=== PATIENT | female | born 1985 | race African-American/Black ===

== ENCOUNTER 2017-03-29 17:14 | Observation (INO) ==
[2017-03-29 18:41] LABS: Apearance,Urine Slightly Hazy (Clear); Bacteria,Urine Occasional /HPF (Few); Bilirubin,Urine Negative (Negative); Blood, Urine Negative (Negative); Glucose,Urine (UA) Negative (Negative); Hyaline Casts,Urine 8 /LPF (0-3); Ketones,Urine 5 mg/dL (Negative); Mucus,Urine Many /LPF (Occasional); Nitrite,Urine Negative (Negative); Protein,Urine Negative; RBC,Urine 5 /HPF (0-4); Squamous Epithelial Cell,Urine Occasional /HPF (0-10); Urine Color Yellow (Yellow); Urine Specific Gravity 1.027 (1.001-1.035); WBC,Urine 14 /HPF (0-6)
[2017-03-29 19:22] LABS: Basophils % 0.1 % (0.0-0.8); Eosinophils # 0.1 10*3/uL (0.0-0.87); Hematocrit 34.5 VOL% (35.7-47.0); Hemoglobin 11.5 GM/DL (12.0-16.0); Immature Granulocytes % 0.5 %; Immature Granulocytes Absolute 0.04 #; Lymphocytes # 2.2 10*3/uL (1.4-4.0); Lymphocytes % 24.9 % (21.3-54.2); Mean Corpuscular HGB Conc 33.3 GM/DL (32-36); Mean Corpuscular Hemoglobin 30 PG (27-34); Mean Corpuscular Volume 90.6 FL (87-102); Mean Platelet Volume 9.9 FL (9.6-12.0); Monocytes # 0.5 10*3/uL (0.11-0.8); Monocytes % 6.1 % (1.7-12.7); Neutrophils # 5.9 10*3/uL (1.4-7.4); Neutrophils % 67.4 % (38.7-73.9); Platelet Count 239 T/CUMM (130-400); Red Blood Count 3.81 MC/CUMM (3.8-5.5); Red Cell Distribution Width 13.4 % (9.3-17.3); White Blood Count 8.7 T/CUMM (4-12)
[2017-03-29 19:32] LABS: INR 0.9; PT Patient Result 9.8 SECS; Partial Thromboplastin Time 28.6 SECS (0-40)
[2017-03-29 19:41] LABS: Albumin 2.6 G/DL (3.4-5.0); Bilirubin,Total 0.5 MG/DL (0.2-1.0); Calcium 8.7 MG/DL (8.5-10.1); Osmolality,Calculated 270.8 MOS/KG (273-304); Potassium 3.8 MMOL/L (3.5-5.1); Total Protein 6.6 G/DL (6.4-8.3); Uric Acid 4.3 MG/DL (2.6-6.0)
--- NOTE | 2017-03-29 19:59 | Ultrasound Report ---
Exam: US OB >= 14 weeks fetus Date: 03/29/2017 6:48 PM Indication: Assess growth, elevated maternal blood pressure. Reported gestational age 24 weeks 2 days and due date of 07/17/2017 Comparison: 01/27/2017 Findings: Single fetus in transverse presentation with cardiac activity. Heart rate is regular 1 65 bpm. Placenta is posterior/right lateral with no previa. BPD: 5.51 cm; 22/6 Head circumference: 20.55 cm; 22/5 Abdominal circumference: 17.4 cm; 22/5 Femur length: 3.93 cm; 22/5 Amniotic fluid index: 11.06 cm, which is within normal limits Estimated weight: 525 g (1 lb. 3 oz.) this corresponds to the less than 3rd percentile for growth. Cervical length: 5.99 cm structures: stomach, kidneys, bladder, three-vessel cord and cord insertion appear within normal limits. Four-chamber heart is not well visualized. The spine is not well visualized. Limited visualization of the nose/lips appears grossly normal. Maternal ovaries not visualized. Ultrasound images were captured and stored. Impression: 1. Single fetus in transverse presentation with cardiac activity. Estimated gestational age 22 weeks 5 days and due date of 07/28/2017. This is an 11 day discrepancy from the reported due date of 07/17/2017. Additionally, the estimated weight of 1 lb. 3 oz. is less than 3rd percentile for growth. Continued close clinical and imaging follow-up is recommended. 2. Normal amniotic fluid volume. 3. Limited structural survey as detailed above. Follow-up for nonvisualized/poorly visualized structures is recommended when clinically feasible. PROCEDURE INTERPRETED AT [facility] DEPARTMENT OF RADIOLOGY Final Report Signed by: Jonathan Hewitt
[2017-03-29] MEDS: LACTATED RINGERS 1,000 ML IV SCH (21:21)
[2017-03-29] MEDS: LABETALOL 100 MG TABLET PO SCH (21:21)
[2017-03-30] MEDS: LACTATED RINGERS 1,000 ML IV SCH ×3 (04:30→22:20)
--- NOTE | 2017-03-30 09:21 | OB/GYN History & Physical ---
History of Present Illness Chief complaint: presented 03/29/17 for c/o bilateral lower abdominal discomforts History of present illness: Ms. Delatorre is a 31 year old female that presented with complaints of bilateral lower abdominal discomfort with increasing pain shooting towards the vagina per patient. Patient is a 31-year-old 3 para 2001 that presented complaints of bilateral lower abdominal pain and discomfort and suprapubic discomfort. She is 24.3 weeks gestation today based on last menstrual period of 07/17/2017. She receives care at [facility] [place] with Dr. Wolfe. She had a total of 3 visits and 1 ultrasound. During the course of her she has initiated late care, had a positive urine drug screen for cannabinoids on 01/25/2017, and vitamin D deficiency of 9.2 and started vitamin D on 50,000 units weekly. Her records are current, reviewed, and up to date. 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 On 01/07/2009 she had a male infant weighing 8 lbs. 9 oz. at 40 weeks gestation by primary section secondary to elevated blood pressures. On 07/12/2005 at 38 weeks gestation she had a repeat section to deliver a female . Patient stated during the course of the last the baby had an arrhythmia in which they took the baby early and she also had elevated blood pressures. 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, graduated high school Family Hx: Hypertension noted with mother, father, maternal grandmother; diabetes noted with maternal grandmother Medications: vitamins daily Allergies: NKDA Tobacco, Alcohol, and drugs: Denies use of any drugs Labs: Blood type and RH B+, antibody screen negative, Rubella immune, HIV negative, HBsAG negative, GC negative, Chlamydia negative, Diabetic Screen too early presently, GBS to early, not obtained, Other urine drug screen positive for cannabinoids on 01/25/2017, obesity Assessment: IUP at 24.3 weeks, previous section 2, labile blood pressures, history elevated blood pressures in with both pregnancies, H/O PIH, vitamin D deficiency, obesity, anemia, ligament discomfort, urinary tract infection Plan: Patient had PIH labs obtained yesterday and was they are within normal limits. She was started on labetalol during the night per Dr. Davis. A 24 hour urine is in progress presently. I consulted Dr. Wolfe and he indicated that he will continue to monitor the patient for elevated blood pressures today and she will possibly be discharged home this morning. I informed the patient to start taking a daily aspirin of 81 mg every day. She is also to include vitamin D 5000 IUs daily [id number]. Daily kick counts, labor, and bleeding precautions were discussed. Patient denies any drug use she was counseled to use that utilizing any drugs if it was pertinent with her. Preeclampsia signs and symptoms were discussed. Patient verbalized understanding to all instructions. She will possibly be discharged home tomorrow if stable. Home Medications Medication Instructions Recorded Confirmed Type Vits #90/Iron Fum/FA 1 tablet PO DAILY 03/29/17 03/29/17 History [ Formula Tablet] Allergies Allergy/AdvReac Type Severity Reaction Status Date / Time No Known Allergies Allergy Verified 03/29/17 17:45 12 point system: reviewed and no additional remarkable complaints except as stated Medical,Surgical,& Family Hx - Medical History Other: History of: Miscellaneous Medical Problems (obesity) - Surgical History HEENT Surgeries: Surgical HX of: Tonsilectomy & Adenoidectomy (1999) Reproductive Surgeries: Surgical HX of;: Section (2008 & 2014) - Family History Family History: Reports;: Family Diabetes (Maternal grandmother), Family Hypertension (Mother and Father, MGM) - Social History Smoking Status: Never smoker Frequency of Alcohol Use: None Type of Drug Use: None Marital Status: Single Lives With:: Children Functional capacity: independent ambulation 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 Vitals: Vital Signs Temp Pulse Resp BP Pulse Ox 03/30/17 07:36 98.1 F 81 20 144/84 99 03/30/17 05:59 18 03/30/17 03:46 97.7 F 86 18 145/88 99 03/30/17 02:00 20 03/30/17 00:00 99.2 F 92 H 18 147/73 97 03/29/17 20:00 98.4 F 78 18 127/71 General appearance: no acute distress, over weight - Antepartum / Post Antepartum Exam Cervix -Dilatation: deferred Heart Rate: 171 bpm this morning [place]: uterine tonus soft Abdomen obstetrics: Present: bowel sounds normal Uterus exam: Present: enlarged (fundal height @ 25 cm) - Head Head exam: Present: normal inspection - Eye Eye exam: Present: EOMI Pupils: Present: normal accommodation - ENT ENT exam: Present: normal exam, normal external ear exam - Neck Neck exam: Present: normal inspection - Respiratory Respiratory exam: Present: clear to auscultation bilaterally - Cardiovascular Cardiovascular exam: Present: regular rate and rhythm - GI/Abdominal GI/Abdominal exam: Present: normal bowel sounds - Extremities Exam Extremities exam: Present: normal inspection, normal capillary refill, full ROM - Back Exam Back exam: Present: normal inspection - Neurological Exam Neurological exam: Present: alert, oriented X3, normal gait - Psychiatric Psychiatric exam: Present: normal affect, normal mood - Skin Skin exam: Present: normal color, warm, dry Assessment and Plan (1) Labile blood pressure Status: Acute Assessment and plan: PIH labs and 24 hour urine obtained vitamin D 5000 IU and Daily ASA 81 mg labetalol 100 mg po bid Current Visit: Yes (2) PIH ( induced hypertension) Status: Acute Current Visit: Yes (3) Obesity Status: Acute Current Visit: Yes (4) H/O section Status: Acute Current Visit: Yes (5) H/O cannabis abuse Status: Acute Current Visit: Yes (6) Vitamin D deficiency Status: Acute Assessment and plan: vitamin D 5000 IU daily Current Visit: Yes (7) Discomfort during Status: Acute Current Visit: Yes Results - Labs CBC & BMP: 03/29/17 19:08 03/29/17 19:08 Labs: Laboratory Tests 03/29/17 03/29/17 03/29/17 18:30 19:08 19:08 WBC 8.7 RBC 3.81 Hgb 11.5 L Hct 34.5 L MCV 90.6 MCH 30 MCHC 33.3 RDW 13.4 Plt Count 239 MPV 9.9 Neut % (Auto) 67.4 Lymph % (Auto) 24.9 Pope % (Auto) 6.1 Eos % (Auto) 1.0 Baso % (Auto) 0.1 Neut # (Auto) 5.9 Lymph # (Auto) 2.2 Pope # (Auto) 0.5 Eos # (Auto) 0.1 Baso # (Auto) 0.0 Immature Gran % 0.5 Nucleated RBC % 0.0 Immature Gran # 0.04 Nucleated RBCs # 0.00 INR PT Patient/Control Mix Fibrinogen Circ Anticoag PTT Sodium 137 Potassium 3.8 Chloride 104 Carbon Dioxide 26 Anion Gap 10.8 BUN 7 Creatinine 0.60 GFR Calculation 187 BUN/Creatinine Ratio 11.00 Glucose 90 Calculated Osmolality 270.8 L Uric Acid 4.3 Calcium 8.7 Total Bilirubin 0.50 AST 9 ALT 15 Alkaline Phosphatase 69 Total Protein 6.6 Albumin 2.6 L Globulin 4.0 H Albumin/Globulin Ratio 0.6 L Urine Color Yellow Urine Appearance Slightly hazy Urine pH 5.0 Ur Specific [place] 1.027 Urine Protein Negative Urine Glucose (UA) Negative Urine Ketones 5 Urine Blood Negative Urine Nitrate Negative Urine Bilirubin Negative Urine Urobilinogen 2.0 H Urine Leukocytes Small H Urine RBC 5 Urine WBC 14 Ur Squamous Epith Cells Occasional Urine Bacteria Occasional Hyaline Casts 8 Urine Mucus Many Ur Culture Indicated? Results to follow 03/29/17 19:09 WBC RBC Hgb Hct MCV MCH MCHC RDW Plt Count MPV Neut % (Auto) Lymph % (Auto) Pope % (Auto) Eos % (Auto) Baso % (Auto) Neut # (Auto) Lymph # (Auto) Pope # (Auto) Eos # (Auto) Baso # (Auto) Immature Gran % Nucleated RBC % Immature Gran # Nucleated RBCs # INR 0.9 PT Patient/Control Mix 9.8 Fibrinogen 374 Circ Anticoag PTT 28.6 Sodium Potassium Chloride Carbon Dioxide Anion Gap BUN Creatinine GFR Calculation BUN/Creatinine Ratio Glucose Calculated Osmolality Uric Acid Calcium Total Bilirubin AST ALT Alkaline Phosphatase Total Protein Albumin Globulin Albumin/Globulin Ratio Urine Color Urine Appearance Urine pH Ur Specific [place] Urine Protein Urine Glucose (UA) Urine Ketones Urine Blood Urine Nitrate Urine Bilirubin Urine Urobilinogen Urine Leukocytes Urine RBC Urine WBC Ur Squamous Epith Cells Urine Bacteria Hyaline Casts Urine Mucus Ur Culture Indicated?
[2017-03-30] MEDS: LABETALOL 100 MG TABLET PO SCH ×2 (09:30→20:52)
[2017-03-30 23:02] LABS: Collection Time,Urine 24 HOURS; Total Protein 24 Hr Ur Result 320 MG/24HR (0-149.1); Total Volume,Urine 3200 ML (400-2000)
[2017-03-30 23:29] LABS: Barbiturates Screen,Urine Negative (Negative); Benzodiazepines Screen,Urine Negative (Negative); Cannabinoid Screen,Urine Positive (Negative); Opiate Screen,Urine Negative (Negative); Phencyclidine Screen,Urine Negative (Negative)
[2017-03-31 06:43] LABS: Basophils % 0.2 % (0.0-0.8); Eosinophils # 0.2 10*3/uL (0.0-0.87); Eosinophils % 1.7 % (0.00-10.9); Hematocrit 31.5 VOL% (35.7-47.0); Hemoglobin 10.8 GM/DL (12.0-16.0); Immature Granulocytes % 0.3 %; Immature Granulocytes Absolute 0.03 #; Lymphocytes # 2.1 10*3/uL (1.4-4.0); Lymphocytes % 23.8 % (21.3-54.2); Mean Corpuscular HGB Conc 34.3 GM/DL (32-36); Mean Corpuscular Hemoglobin 31 PG (27-34); Mean Platelet Volume 10.2 FL (9.6-12.0); Monocytes # 0.6 10*3/uL (0.11-0.8); Monocytes % 6.2 % (1.7-12.7); Neutrophils # 6.1 10*3/uL (1.4-7.4); Neutrophils % 67.8 % (38.7-73.9); Platelet Count 201 T/CUMM (130-400); Red Blood Count 3.54 MC/CUMM (3.8-5.5); Red Cell Distribution Width 13.2 % (9.3-17.3)
[2017-03-31 07:08] LABS: Uric Acid 3.8 MG/DL (2.6-6.0)
[2017-03-31] MEDS: LABETALOL 100 MG TABLET PO SCH ×2 (08:45→20:58)
--- NOTE | 2017-03-31 09:16 | OB/GYN Progress Note ---
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 Denies any cramping, pain, discomforts, vaginal bleeding, or H/A. A: IUP 25.4 wks, proteinuria, H/O PIH, P: Consulted Dr. Wolfe for 24 hour urine protein at 320 mg- recommended consult Nephrology for renal issues Exam WOOL DYER - Constitutional Vitals: Vital Signs Temp Pulse Resp BP Pulse Ox 03/31/17 07:23 97.2 F L 79 20 146/76 100 03/31/17 04:15 97.5 F L 83 18 137/77 96 03/31/17 02:10 20 03/31/17 00:20 97.4 F L 87 20 133/81 96 03/30/17 19:40 98.1 F 84 20 138/76 97 03/30/17 15:59 97.4 F L 82 20 154/86 97 03/30/17 11:19 98.1 F 81 20 140/92 100 General appearance: no acute distress - Antepartum / Post Antepartum Exam Heart Rate: 153 bpm Breast: bilateral: normal Abdomen obstetrics: Present: bowel sounds normal Uterus exam: Present: enlarged (gravid, soft, nontender) Adnexa: bilateral: normal Anus/Rectum: Present: normal perianal skin - Head Head exam: Present: normal inspection - Eye Pupils: Present: normal accommodation - ENT ENT exam: Present: normal exam, normal external ear exam - Neck Neck exam: Present: normal inspection - Respiratory Respiratory exam: Present: clear to auscultation bilaterally - Cardiovascular Cardiovascular exam: Present: regular rate and rhythm - GI/Abdominal GI/Abdominal exam: Present: normal bowel sounds - Extremities Exam Extremities exam: Present: normal inspection, normal capillary refill, full ROM Results - Labs CBC & BMP: 03/31/17 05:58 03/31/17 05:58 Labs: Laboratory Tests 03/29/17 03/29/17 03/29/17 18:30 19:08 19:08 WBC 8.7 RBC 3.81 Hgb 11.5 L Hct 34.5 L MCV 90.6 MCH 30 MCHC 33.3 RDW 13.4 Plt Count 239 MPV 9.9 Neut % (Auto) 67.4 Lymph % (Auto) 24.9 Dane % (Auto) 6.1 Eos % (Auto) 1.0 Baso % (Auto) 0.1 Neut # (Auto) 5.9 Lymph # (Auto) 2.2 Dane # (Auto) 0.5 Eos # (Auto) 0.1 Baso # (Auto) 0.0 Immature Gran % 0.5 Nucleated RBC % 0.0 Immature Gran # 0.04 Nucleated RBCs # 0.00 INR PT Patient/Control Mix Fibrinogen Circ Anticoag PTT Sodium 137 Potassium 3.8 Chloride 104 Carbon Dioxide 26 Anion Gap 10.8 BUN 7 Creatinine 0.60 GFR Calculation 187 BUN/Creatinine Ratio 11.00 Glucose 90 Calculated Osmolality 270.8 L Uric Acid 4.3 Calcium 8.7 Total Bilirubin 0.50 AST 9 ALT 15 Alkaline Phosphatase 69 Total Protein 6.6 Albumin 2.6 L Globulin 4.0 H Albumin/Globulin Ratio 0.6 L Urine Color Yellow Urine Appearance Slightly hazy Urine pH 5.0 Ur Specific [place] 1.027 Urine Protein Negative Urine Glucose (UA) Negative Urine Ketones 5 Urine Blood Negative Urine Nitrate Negative Urine Bilirubin Negative Urine Urobilinogen 2.0 H Urine Leukocytes Small H Urine RBC 5 Urine WBC 14 Ur Squamous Epith Cells Occasional Urine Bacteria Occasional Hyaline Casts 8 Urine Mucus Many Ur Culture Indicated? Results to follow Urine Collection Time Urine Total Volume Ur Total Protein 24 Hr Urine Opiates Screen Ur Barbiturates Screen Ur Phencyclidine Scrn U Amphetamine/Methamph U Benzodiazepines Scrn U Cocaine Metab Screen U Cannabinoids Screen 03/29/17 03/30/17 03/30/17 19:09 22:20 22:30 WBC RBC Hgb Hct MCV MCH MCHC RDW Plt Count MPV Neut % (Auto) Lymph % (Auto) [place] % (Auto) Eos % (Auto) Baso % (Auto) Neut # (Auto) Lymph # (Auto) [place] # (Auto) Eos # (Auto) Baso # (Auto) Immature Gran % Nucleated RBC % Immature Gran # Nucleated RBCs # INR 0.9 PT Patient/Control Mix 9.8 Fibrinogen 374 Circ Anticoag PTT 28.6 Sodium Potassium Chloride Carbon Dioxide Anion Gap BUN Creatinine GFR Calculation BUN/Creatinine Ratio Glucose Calculated Osmolality Uric Acid Calcium Total Bilirubin AST ALT Alkaline Phosphatase Total Protein Albumin Globulin Albumin/Globulin Ratio Urine Color Urine Appearance Urine pH Ur Specific [place] Urine Protein Urine Glucose (UA) Urine Ketones Urine Blood Urine Nitrate Urine Bilirubin Urine Urobilinogen Urine Leukocytes Urine RBC Urine WBC Ur Squamous Epith Cells Urine Bacteria Hyaline Casts Urine Mucus Ur Culture Indicated? Urine Collection Time 24 Urine Total Volume 3200 H Ur Total Protein 24 Hr 320 H Urine Opiates Screen Negative Ur Barbiturates Screen Negative Ur Phencyclidine Scrn Negative U Amphetamine/Methamph Negative U Benzodiazepines Scrn Negative U Cocaine Metab Screen Negative U Cannabinoids Screen Positive H 03/31/17 03/31/17 03/31/17 05:58 05:58 05:58 WBC 9.0 RBC 3.54 L Hgb 10.8 L Hct 31.5 L MCV 89.0 MCH 31 MCHC 34.3 RDW 13.2 Plt Count 201 MPV 10.2 Neut % (Auto) 67.8 Lymph % (Auto) 23.8 [place]ane % (Auto) 6.2 Eos % (Auto) 1.7 Baso % (Auto) 0.2 Neut # (Auto) 6.1 Lymph # (Auto) 2.1 Dane # (Auto) 0.6 Eos # (Auto) 0.2 Baso # (Auto) 0.0 Immature Gran % 0.3 Nucleated RBC % 0.0 Immature Gran # 0.03 Nucleated RBCs # 0.00 INR PT Patient/Control Mix Fibrinogen 411 H Circ Anticoag PTT Sodium Potassium Chloride Carbon Dioxide Anion Gap BUN Creatinine 0.50 L GFR Calculation 199 BUN/Creatinine Ratio Glucose Calculated Osmolality Uric Acid 3.8 Calcium Total Bilirubin AST ALT Alkaline Phosphatase Total Protein Albumin Globulin Albumin/Globulin Ratio Urine Color Urine Appearance Urine pH Ur Specific [place] Urine Protein Urine Glucose (UA) Urine Ketones Urine Blood Urine Nitrate Urine Bilirubin Urine Urobilinogen Urine Leukocytes Urine RBC Urine WBC Ur Squamous Epith Cells Urine Bacteria Hyaline Casts Urine Mucus Ur Culture Indicated? Urine Collection Time Urine Total Volume Ur Total Protein 24 Hr Urine Opiates Screen Ur Barbiturates Screen Ur Phencyclidine Scrn U Amphetamine/Methamph U Benzodiazepines Scrn U Cocaine Metab Screen U Cannabinoids Screen
[2017-03-31] MEDS: LACTATED RINGERS 1,000 ML IV SCH ×2 (14:36→14:37)
--- NOTE | 2017-03-31 19:00 | Nephrology Consult Note ---
History of Present Illness Chief complaint: Hypertension, proteinuria History of present illness: Ms. Delatorre is a 31 year old female with a history of hypertension is now 24 weeks 4 days intrauterine . Patient had evidence of proteinuria on UA that quantitated to less than 500 mg. Nephrology has been consulted for proteinuria and hypertension. Throughout the day patient's blood pressure has been 6 ranging from systolics of 160s to to 130s and diastolics in the 70s-80s. No shortness of breath or chest pain. There is no history of kidney disease in the patient or patient's family. No history of NSAID use. She has been treated for urinary tract infection. Continue with antihypertensive medications labetalol 100 mg 3 times daily. Avoid nephrotoxic agents. Will repeat a spot urine protein creatinine. Creatinine appears to be stable. Home Medications Medication Instructions Recorded Confirmed Type Vits #90/Iron Fum/FA 1 tablet PO DAILY 03/29/17 03/29/17 History [ Formula Tablet] Allergies Allergy/AdvReac Type Severity Reaction Status Date / Time No Known Allergies Allergy Verified 03/29/17 17:45 Medical,Surgical,& Family Hx - Medical History Other: History of: Miscellaneous Medical Problems (obesity) - Surgical History HEENT Surgeries: Surgical HX of: Tonsilectomy & Adenoidectomy (1999) Reproductive Surgeries: Surgical HX of;: Section (2008 & 2014) - Family History Family History: Reports;: Family Diabetes (Maternal grandmother), Family Hypertension (Mother and Father, MGM) - Social History Smoking Status: Never smoker Frequency of Alcohol Use: None Type of Drug Use: None Review of Systems Constitutional: no anorexia, no fatigue Cardiovascular: no chest pain at rest, no chest pain with activity, no diaphoresis Respiratory: no dyspnea, no hemoptysis Genitourinary: no difficulty urinating, no dysuria Exam - Vital Signs Vital signs: Period Temp Pulse Resp BP Sys/Vu Pulse Ox Last 24 Hr 97.2 F-98.8 F 79-96 18-20 133-158/76-93 96-100 - General Appearance General appearance: well-developed, well-nourished EENT: ATNC Neck: supple Respiratory: clear Cardiology: regular rate, regular rhythm Gastrointestinal: normoactive bowel sounds, no tenderness Neurologic: alert and oriented x3 Musculoskeletal: no clubbing Psychiatric: mood/affect appropriate Results - Labs CBC & BMP: 03/31/17 05:58 03/31/17 05:58 Assessment and Plan (1) Proteinuria Status: Acute Assessment and plan: Appears to be nonnephrotic. Will quantitate proteinuria with spot urine protein creatinine. Continue with treatment of urinary tract infection. Continue to manage blood pressure. Current Visit: Yes (2) Labile blood pressure Status: Chronic Assessment and plan: Increase labetalol to 100 mg 3 times daily. Current Visit: Yes (3) Obesity Status: Chronic Current Visit: Yes (4) H/O cannabis abuse Status: Chronic Current Visit: Yes Specialty Discharge - Follow Up or Referrals Follow up with: Sushil Mata Jr., MD [Physician] - 2 Weeks
[2017-04-01 07:10] VITALS: BP 152/77
--- NOTE | 2017-04-01 09:03 | Discharge Summary ---
Hospital Course - Hospital Course Hospital Course: Ms. Delatorre is a 31-year-old female that is a 3 para 2001 that presented with complaints of bilateral lower abdominal pain and discomfort on 03/29/2017 at 24.3 weeks gestation based on LMP with an EDC of 07/17/2017. She receives care with Dr. Wolfe. During her hospital course it was diagnosed that she had ligament discomfort and labile blood pressures. Secondary to patient's history of PIH in 2 pregnancies, she was started on labetalol 100 mg p.o. twice daily per Dr. Davis. A 24-hour urine was obtained during her hospitalization with a urine protein over [address] Wolfe was consulted and he recommended a nephrology consult. Dr. Montes De Oca did see the patient on 03/31/2017. He evaluate the patient and indicated that her condition appears to be nonhydronephrotic, recommended treatment for urinary tract infection, continue to monitor blood pressure, and to quantitate proteinuria with spot urine protein creatinine. Dr. Mata did okay for the patient to go home on labetalol 100 mg 3 times daily and for her to follow-up with him in 2 weeks. The patient has been stable she has not had any issues during the hospitalization. She will follow with Dr. Ni at her next scheduled appointment. Diagnosis - Discharge Diagnosis (1) Labile blood pressure Status: Chronic (2) PIH ( induced hypertension) Status: Acute (3) Obesity Status: Chronic (4) H/O section Status: Acute (5) H/O cannabis abuse Status: Chronic (6) Vitamin D deficiency Status: Acute (7) Discomfort during Status: Acute (8) History of induced hypertension Status: Acute (9) UTI (urinary tract infection) Status: Acute Specialty Discharge - Follow Up or Referrals Follow up with: Sushil Mata Jr., MD [Physician] - 2 Weeks Discharge Plan - Discharge Data Disposition: Disch To Home/Self Care Condition at Discharge: Stable Activity: resume usual activities as tolerated Hygiene: no restrictions Weight Bearing at Discharge: full weight bearing Driving: no restrictions Contact your physician if you experience:: fever over 101, Difficulty voiding, Redness or swelling, Nausea/Vomiting, Shortness of breath, Bleeding, pain uncontrolled by pain medications - Discharge Medications New Nitrofurantoin Monohyd/M-Cryst [Macrobid 100 mg Capsule] 100 mg PO BID #14 capsule Labetalol Tab [Trandate Tab] 100 mg PO TID #90 tablet No Action Vits #90/Iron Fum/FA [ Formula Tablet] 1 tablet PO DAILY - Follow Up or Referral Follow Up: Sushil Mata Jr., MD [Physician] - 2 Weeks - Forms/Instructions Instructions: Urinary Tract Infection in Women (DC), Low Sodium Diet (DC), Hypertension (DC) Exam - Constitutional Vitals: Period Temp Pulse Resp BP Sys/Vu Pulse Ox Last 24 Hr 96.7 F-98.8 F 79-96 17-20 131-158/77-93 96-99 General appearance: no acute distress, over weight - Head Head exam: Present: normal inspection - Eye Eye exam: Present: EOMI - ENT ENT exam: Present: normal exam, normal external ear exam - Neck Neck exam: Present: normal inspection - Respiratory Respiratory exam: Present: clear to auscultation bilaterally - Cardiovascular Cardiovascular exam: Present: regular rate and rhythm - GI/Abdominal GI/Abdominal exam: Present: normal bowel sounds, other (uterus soft, gravid, nontender. FHTs this morning 164 with doppler) - Extremities Exam Extremities exam: Present: normal inspection, normal capillary refill, full ROM - Back Exam Back exam: Present: normal inspection - Neurological Exam Neurological exam: Present: alert, oriented X3, normal gait - Psychiatric Psychiatric exam: Present: normal affect, normal mood - Skin Skin exam: Present: normal color, warm, dry Discharge Results Procedures and tests throughout hospitalization: Laboratory Tests 03/29/17 03/29/17 03/29/17 18:30 19:08 19:08 WBC 8.7 RBC 3.81 Hgb 11.5 L Hct 34.5 L MCV 90.6 MCH 30 MCHC 33.3 RDW 13.4 Plt Count 239 MPV 9.9 Neut % (Auto) 67.4 Lymph % (Auto) 24.9 [place] % (Auto) 6.1 Eos % (Auto) 1.0 Baso % (Auto) 0.1 Neut # (Auto) 5.9 Lymph # (Auto) 2.2 [place] # (Auto) 0.5 Eos # (Auto) 0.1 Baso # (Auto) 0.0 Immature Gran % 0.5 Nucleated RBC % 0.0 Immature Gran # 0.04 Nucleated RBCs # 0.00 INR PT Patient/Control Mix Fibrinogen Circ Anticoag PTT Sodium 137 Potassium 3.8 Chloride 104 Carbon Dioxide 26 Anion Gap 10.8 BUN 7 Creatinine 0.60 GFR Calculation 187 BUN/Creatinine Ratio 11.00 Glucose 90 Calculated Osmolality 270.8 L Uric Acid 4.3 Calcium 8.7 Total Bilirubin 0.50 AST 9 ALT 15 Alkaline Phosphatase 69 Total Protein 6.6 Albumin 2.6 L Globulin 4.0 H Albumin/Globulin Ratio 0.6 L Urine Color Yellow Urine Appearance Slightly hazy Urine pH 5.0 Ur Specific [place] 1.027 Urine Protein Negative Urine Glucose (UA) Negative Urine Ketones 5 Urine Blood Negative Urine Nitrate Negative Urine Bilirubin Negative Urine Urobilinogen 2.0 H Urine Leukocytes Small H Urine RBC 5 Urine WBC 14 Ur Squamous Epith Cells Occasional Urine Bacteria Occasional Hyaline Casts 8 Urine Mucus Many Ur Culture Indicated? Results to follow Ur Random Creatinine U Random Total Protein Urine Collection Time Urine Total Volume Ur Total Protein 24 Hr Urine Opiates Screen Ur Barbiturates Screen Ur Phencyclidine Scrn U Amphetamine/Methamph U Benzodiazepines Scrn U Cocaine Metab Screen U Cannabinoids Screen 03/29/17 03/30/17 03/30/17 19:09 22:20 22:30 WBC RBC Hgb Hct MCV MCH MCHC RDW Plt Count MPV Neut % (Auto) Lymph % (Auto) [place] % (Auto) Eos % (Auto) Baso % (Auto) Neut # (Auto) Lymph # (Auto) [place] # (Auto) Eos # (Auto) Baso # (Auto) Immature Gran % Nucleated RBC % Immature Gran # Nucleated RBCs # INR 0.9 PT Patient/Control Mix 9.8 Fibrinogen 374 Circ Anticoag PTT 28.6 Sodium Potassium Chloride Carbon Dioxide Anion Gap BUN Creatinine GFR Calculation BUN/Creatinine Ratio Glucose Calculated Osmolality Uric Acid Calcium Total Bilirubin AST ALT Alkaline Phosphatase Total Protein Albumin Globulin Albumin/Globulin Ratio Urine Color Urine Appearance Urine pH Ur Specific [place] Urine Protein Urine Glucose (UA) Urine Ketones Urine Blood Urine Nitrate Urine Bilirubin Urine Urobilinogen Urine Leukocytes Urine RBC Urine WBC Ur Squamous Epith Cells Urine Bacteria Hyaline Casts Urine Mucus Ur Culture Indicated? Ur Random Creatinine U Random Total Protein Urine Collection Time 24 Urine Total Volume 3200 H Ur Total Protein 24 Hr 320 H Urine Opiates Screen Negative Ur Barbiturates Screen Negative Ur Phencyclidine Scrn Negative U Amphetamine/Methamph Negative U Benzodiazepines Scrn Negative U Cocaine Metab Screen Negative U Cannabinoids Screen Positive H 03/31/17 03/31/17 03/31/17 05:58 05:58 05:58 WBC 9.0 RBC 3.54 L Hgb 10.8 L Hct 31.5 L MCV 89.0 MCH 31 MCHC 34.3 RDW 13.2 Plt Count 201 MPV 10.2 Neut % (Auto) 67.8 Lymph % (Auto) 23.8 [place] % (Auto) 6.2 Eos % (Auto) 1.7 Baso % (Auto) 0.2 Neut # (Auto) 6.1 Lymph # (Auto) 2.1 [place] # (Auto) 0.6 Eos # (Auto) 0.2 Baso # (Auto) 0.0 Immature Gran % 0.3 Nucleated RBC % 0.0 Immature Gran # 0.03 Nucleated RBCs # 0.00 INR PT Patient/Control Mix Fibrinogen 411 H Circ Anticoag PTT Sodium Potassium Chloride Carbon Dioxide Anion Gap BUN Creatinine 0.50 L GFR Calculation 199 BUN/Creatinine Ratio Glucose Calculated Osmolality Uric Acid 3.8 Calcium Total Bilirubin AST ALT Alkaline Phosphatase Total Protein Albumin Globulin Albumin/Globulin Ratio Urine Color Urine Appearance Urine pH Ur Specific [place] Urine Protein Urine Glucose (UA) Urine Ketones Urine Blood Urine Nitrate Urine Bilirubin Urine Urobilinogen Urine Leukocytes Urine RBC Urine WBC Ur Squamous Epith Cells Urine Bacteria Hyaline Casts Urine Mucus Ur Culture Indicated? Ur Random Creatinine U Random Total Protein Urine Collection Time Urine Total Volume Ur Total Protein 24 Hr Urine Opiates Screen Ur Barbiturates Screen Ur Phencyclidine Scrn U Amphetamine/Methamph U Benzodiazepines Scrn U Cocaine Metab Screen U Cannabinoids Screen 04/01/17 04/01/17 05:35 05:35 WBC RBC Hgb Hct MCV MCH MCHC RDW Plt Count MPV Neut % (Auto) Lymph % (Auto) [place] % (Auto) Eos % (Auto) Baso % (Auto) Neut # (Auto) Lymph # (Auto) [place] # (Auto) Eos # (Auto) Baso # (Auto) Immature Gran % Nucleated RBC % Immature Gran # Nucleated RBCs # INR PT Patient/Control Mix Fibrinogen Circ Anticoag PTT Sodium Potassium Chloride Carbon Dioxide Anion Gap BUN Creatinine GFR Calculation BUN/Creatinine Ratio Glucose Calculated Osmolality Uric Acid Calcium Total Bilirubin AST ALT Alkaline Phosphatase Total Protein Albumin Globulin Albumin/Globulin Ratio Urine Color Urine Appearance Urine pH Ur Specific [place] Urine Protein Urine Glucose (UA) Urine Ketones Urine Blood Urine Nitrate Urine Bilirubin Urine Urobilinogen Urine Leukocytes Urine RBC Urine WBC Ur Squamous Epith Cells Urine Bacteria Hyaline Casts Urine Mucus Ur Culture Indicated? Ur Random Creatinine 102 U Random Total Protein 17 Urine Collection Time Urine Total Volume Ur Total Protein 24 Hr Urine Opiates Screen Ur Barbiturates Screen Ur Phencyclidine Scrn U Amphetamine/Methamph U Benzodiazepines Scrn U Cocaine Metab Screen U Cannabinoids Screen Labs on day of discharge: Labs from last 24 hours 04/01/17 04/01/17 05:35 05:35 Ur Random Creatinine 102 U Random Total Protein 17 DS: Provider Date of admission: 03/29/17 20:27 Attending physician on admission: Odilia Davis, Consults: 03/30/17 01:56 Consult to Dietitian [CONS] Routine Reason for Dietitian: Dietary Consult 03/31/17 09:31 Consult to Physician [CONS] Routine Comment: Consulting Provider: Sushil Mata Jr. Consulting Provider Notified: Yes Person Notified: [place] Date Notified: 03/31/17 Time Notified: 09:30 Discharging clinician: ALISHA Lawson
[2017-04-01] MEDS: LABETALOL 100 MG TABLET PO SCH (09:45)
== END 2017-04-01 10:40 | disposition home or self-care (01) ==
LOC: N.OB 17:14 → N.LDOUT 17:14 → N.LD 17:15 → N.OB 22:14
PROVIDERS: ADMIT Obstetrics & Gynecology; ATTEND Obstetrics & Gynecology

== ENCOUNTER 2017-06-05 19:29 | Inpatient (IN) ==
[2017-06-05 20:53] LABS: Apearance,Urine Slightly Hazy (Clear); Bilirubin,Urine Negative (Negative); Glucose,Urine (UA) Negative (Negative); Ketones,Urine Negative (Negative); Nitrite,Urine Negative (Negative); Protein,Urine 30 MG/DL; Urine Color Yellow (Yellow); Urine Specific Gravity 1.025 (1.001-1.035)
[2017-06-05 20:54] LABS: Blood, Urine Small mg/dL (Negative); Urine Urobilinogen 0.1 EU/DL (0.2-1.0)
[2017-06-05 21:04] LABS: Barbiturates Screen,Urine Negative (Negative); Benzodiazepines Screen,Urine Negative (Negative); Cannabinoid Screen,Urine Positive (Negative); Opiate Screen,Urine Negative (Negative); Phencyclidine Screen,Urine Negative (Negative)
[2017-06-05] MEDS ORDERED: ONDANSETRON 4 MG/2 ML VIAL IV PRN (21:09)
[2017-06-05] MEDS ORDERED: LACTATED RINGERS 1,000 ML IV SCH (21:30)
[2017-06-05] MEDS: ACETAMINOPHEN 500 MG TABLET PO PRN (21:32)
[2017-06-05] MEDS: LABETALOL 200 MG TABLET PO SCH (21:34)
[2017-06-05] MEDS: BETAMETH SODIUM PHOS/ACETATE 30 MG/5 ML VIAL IM SCH (21:34)
[2017-06-05 21:59] LABS: Basophils % 0.2 % (0.0-0.8); Eosinophils # 0.1 10*3/uL (0.0-0.87); Eosinophils % 1.4 % (0.00-10.9); Hematocrit 33.5 VOL% (35.7-47.0); Hemoglobin 11.3 GM/DL (12.0-16.0); Immature Granulocytes % 0.5 %; Immature Granulocytes Absolute 0.05 #; Lymphocytes # 2.2 10*3/uL (1.4-4.0); Mean Corpuscular HGB Conc 33.7 GM/DL (32-36); Mean Corpuscular Hemoglobin 30 PG (27-34); Mean Corpuscular Volume 87.7 FL (87-102); Monocytes # 0.7 10*3/uL (0.11-0.8); Monocytes % 7.2 % (1.7-12.7); Neutrophils % 68.7 % (38.7-73.9); Platelet Count 227 T/CUMM (130-400); Red Blood Count 3.82 MC/CUMM (3.8-5.5); Red Cell Distribution Width 14.4 % (9.3-17.3); White Blood Count 10.1 T/CUMM (4-12)
[2017-06-05] MEDS: LACTATED RINGERS 1,000 ML IV SCH (22:11)
[2017-06-05 22:23] LABS: Alanine Aminotransferase 19 U/L (13-56); Albumin 2.6 G/DL (3.4-5.0); Alkaline Phosphatase 93 U/L (45-117); Aspartate Amino Transferase 11 U/L (0-37); Bilirubin,Total < 0.39 MG/DL (0.2-1.0); Blood Urea Nitrogen 7 MG/DL (7-18); Glucose 70 MG/DL (74-106); Osmolality,Calculated 268.8 MOS/KG (273-304); Potassium 3.6 MMOL/L (3.5-5.1); Sodium 137 MMOL/L (136-145); Total Protein 6.7 G/DL (6.4-8.3); Uric Acid 4.2 MG/DL (2.6-6.0)
[2017-06-05 22:33] LABS: INR 0.9; PT Patient Result 9.6 SECS; Partial Thromboplastin Time 29.6 SECS (0-40)
--- NOTE | 2017-06-06 06:28 | OB/GYN History & Physical ---
History of Present Illness Chief complaint: vaginal pain History of present illness: Ms. Delatorre is a 31 year old female who is 32 weeks and 6 days by estimated due date of 07/25/[address] Wolfe and presents today with complaints of vaginal pain. She has known mild preeclampsia per history and is followed by him in the office and is on labetalol. The patient denies any headaches at this time she did have some yesterday per history and some shortness of breath as well. She has had 2 prior C-sections and she has not had any prior preeclampsia in the past. Home Medications Medication Instructions Recorded Confirmed Type Vits #90/Iron Fum/FA 1 tablet PO DAILY 03/29/17 06/05/17 History [ Formula Tablet] Labetalol Tab [Trandate Tab] 100 mg PO TID #90 tablet 04/01/17 06/05/17 Rx Allergies Allergy/AdvReac Type Severity Reaction Status Date / Time No Known Allergies Allergy Verified 03/29/17 17:45 Medical,Surgical,& Family Hx - Medical History Reproductive: No history of: Ectopic , Complication Other: History of: Miscellaneous Medical Problems (obesity) - Surgical History HEENT Surgeries: Surgical HX of: Tonsilectomy & Adenoidectomy (1999) Reproductive Surgeries: Surgical HX of;: Section (2008 & 2014) - Family History Family History: Reports;: Family Diabetes (Maternal grandmother), Family Hypertension (Mother and Father, MGM) - Social History Smoking Status: Never smoker Frequency of Alcohol Use: None Type of Drug Use: None 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 Absent: accessory muscle use - Cardiovascular Cardiovascular exam: Present: regular rate and rhythm - GI/Abdominal GI/Abdominal exam: Present: other (gravid) - Extremities Exam Extremities exam: Absent: calf tenderness - Neurological Exam Neurological exam: Present: alert, oriented X3 Assessment and Plan (1) PIH ( induced hypertension) Status: Acute Assessment and plan: Intrauterine is 32 weeks and 6 days with preeclampsia and history of prior 2. We will admit the patient and proceed with preeclamptic labs watch for blood pressures and maintain the labetalol but increase it a little bit to 200 twice daily. We will also collect a 24-hour urine. We will also proceed with a lung maturity with Celestone. Current Visit: No Results - Labs CBC & BMP: 06/05/17 21:35 06/05/17 21:34 - Diagnostic Findings Procedure: Uterus-Nonstress Test: other (cat 1 , no contractions)
[2017-06-06] MEDS: LACTATED RINGERS 1,000 ML IV SCH ×2 (06:47→16:43)
[2017-06-06] MEDS: FAMOTIDINE 20 MG TABLET PO SCH ×2 (08:58→21:14)
[2017-06-06] MEDS: LABETALOL 200 MG TABLET PO SCH ×2 (08:59→21:15)
[2017-06-06] MEDS: ACETAMINOPHEN 500 MG TABLET PO PRN (09:00)
[2017-06-06] MEDS ORDERED: LABETALOL 200 MG TABLET PO SCH (09:00)
--- NOTE | 2017-06-06 10:04 | Ultrasound Report ---
Bilateral lower extremity venous Doppler with foreman scale, Spectral Doppler and color-flow analysis performed and interpreted. Indication: Leg swelling Scanning over both common femoral veins, superficial femoral veins, greater saphenous veins and popliteal veins demonstrates normal compressibility, color flow, and augmentation. Impression: No evidence of DVT seen in either lower extremity. PROCEDURE INTERPRETED AT [facility] DEPARTMENT OF RADIOLOGY Final Report Signed by: Dr. Valencia Nascimento
--- NOTE | 2017-06-06 10:08 | Ultrasound Report ---
Follow-up OB ultrasound. Indication: Size versus dates. Low weight and EDC discrepancy on previous ultrasound of March 29, 2017. There is a single intrauterine gestation in a cephalic presentation. The placenta is located fundal. The amniotic fluid volume is normal with an DAVID of 7.4 cm. The heart rate is 143 bpm. The three-vessel nature of the cord was not visualized. The maternal ovaries are not visible due to the size of the uterus. Biparietal diameter-8.4 cm Head circumference-30.3 cm Abdominal circumference-29.1 cm Femur length-6.3 cm. Composite gestational age, 33 weeks 2 days with an EDC of July 23, 2017. Growth percentile on today's exam, 43%. Estimated weight, 4 lbs. 11 oz. Impression: Normal DAVID. When compared to our initial OB ultrasound of January 27, 2017, appropriate interval growth is seen. The estimated weight is 4 lbs. 11 oz. PROCEDURE INTERPRETED AT [facility] DEPARTMENT OF RADIOLOGY Final Report Signed by: Dr. Valencia Nascimento
[2017-06-06] MEDS ORDERED: MAGNESIUM HYDROXIDE SUSP 30 ML UDCUP PO PRN (15:01)
[2017-06-06] MEDS ORDERED: BISACODYL 10 MG SUPP RECTAL PRN (15:01)
[2017-06-06] MEDS: DOCUSATE SODIUM 100 MG CAPSULE PO SCH ×2 (16:46→21:14)
[2017-06-06] MEDS: BETAMETH SODIUM PHOS/ACETATE 30 MG/5 ML VIAL IM SCH (21:15)
[2017-06-06 23:22] LABS: Creatinine 24 Hr Urine Result 2.12 G/24HR (0.60-1.80); Creatinine Clearance Urine 276.67 ML/MIN (70-115)
[2017-06-07] MEDS: LACTATED RINGERS 1,000 ML IV SCH ×3 (02:24→21:40)
[2017-06-07] MEDS: FAMOTIDINE 20 MG TABLET PO SCH ×2 (08:46→20:28)
[2017-06-07] MEDS: LABETALOL 200 MG TABLET PO SCH ×2 (08:46→20:29)
[2017-06-07] MEDS: DOCUSATE SODIUM 100 MG CAPSULE PO SCH ×2 (09:01→20:28)
[2017-06-07] MEDS: PRENATAL VITS PO SCH (09:02)
[2017-06-07] MEDS: [UNRECOGNIZED DRUG - OTHER] PO SCH (09:02)
[2017-06-07] MEDS: IRON FUM PO SCH (09:02)
--- NOTE | 2017-06-07 13:48 | OB/GYN Progress Note ---
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 Wrist flexors are normal and no headache or other signs of -induced hypertension. Lab is in progress. 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 Absent: accessory muscle use - GI/Abdominal GI/Abdominal exam: Present: normal bowel sounds, mass (uterus non tender). Absent: guarding, tenderness - Extremities Exam Extremities exam: Present: normal inspection - Neurological Exam Neurological exam: Present: alert, oriented X3 - Psychiatric Psychiatric exam: Present: normal affect, normal mood - Skin Skin exam: Present: normal color, warm, dry Results - Labs CBC & BMP: 06/05/17 21:35 06/05/17 21:34
[2017-06-08 07:21] VITALS: BP 148/77
[2017-06-08] MEDS: LACTATED RINGERS 1,000 ML IV SCH (07:37)
[2017-06-08] MEDS: FAMOTIDINE 20 MG TABLET PO SCH (08:28)
[2017-06-08] MEDS: LABETALOL 200 MG TABLET PO SCH (08:28)
[2017-06-08] MEDS: PRENATAL VITS PO SCH (08:35)
[2017-06-08] MEDS: IRON FUM PO SCH (08:35)
[2017-06-08] MEDS: [UNRECOGNIZED DRUG - OTHER] PO SCH (08:35)
[2017-06-08] MEDS: DOCUSATE SODIUM 100 MG CAPSULE PO SCH (08:35)
--- NOTE | 2017-06-08 09:54 | Discharge Summary ---
Hospital Course - Hospital Course Hospital Course: This patient was admitted at 33 weeks gestation with labile 2 elevated hypertension with diagnosis of PIH. She was stabilized and evaluated with laboratory and testing and slowly stabilized. By the day baby has done quite well and all of her labs is confirmed mild -induced hypertension which is stabilized. She will be continued on the same regimen in an attempt to advance maturity. Diagnosis - Discharge Diagnosis (1) Labile blood pressure Status: Chronic (2) History of induced hypertension Status: Acute (3) with 33 completed weeks gestation Status: Acute Specialty Discharge - Follow Up or Referrals Follow up with: Meng Wolfe DO [Physician] - Discharge Plan - Discharge Data Disposition: Disch To Home/Self Care Discharge Diet: low salt diet Activity: no prolonged standing (Bedrest in the lateral position) Hygiene: may shower Driving: not until seen by doctor - Discharge Medications No Action Vits #90/Iron Fum/FA [ Formula Tablet] 1 tablet PO DAILY Labetalol Tab [Trandate Tab] 100 mg PO TID #90 tablet - Follow Up or Referral Follow Up: Meng Wolfe DO [Physician] - - Forms/Instructions Instructions: (DC), Pre-eclampsia and Eclampsia (DC) Exam - Constitutional Vitals: Period Temp Pulse Resp BP Sys/Vu Pulse Ox Last 24 Hr 97.4 F-98.5 F 79-96 18-20 130-151/71-91 96-98 General appearance: no acute distress - Head Head exam: Present: normal inspection - Eye Pupils: Present: JIMBO - ENT ENT exam: Present: normal exam - Neck Neck exam: Present: normal inspection - Respiratory Respiratory exam: Present: clear to auscultation bilaterally. Absent: accessory muscle use - Cardiovascular Cardiovascular exam: Present: regular rate and rhythm - GI/Abdominal GI/Abdominal exam: Present: tenderness - Extremities Exam Extremities exam: Present: normal inspection - Back Exam Back exam: Present: normal inspection - Neurological Exam Neurological exam: Present: alert, oriented X3 - Psychiatric Psychiatric exam: Present: normal affect, normal mood DS: Provider Date of admission: 06/05/17 21:09 Attending physician on admission: Anais Merritt- Consults: 06/05/17 21:09 Consult to Anesthesiology [CONS] Routine Consulting Provider: Reason for Anesthesiology: Epidural Consult Comment: Epidural for pain managment Discharging clinician: Meng Wolfe DO Expected date of discharge: 06/08/17
== END 2017-06-08 10:55 | disposition home or self-care (01) | DRG 781 ==
LOC: N.LDOUT 19:29 → N.LD 19:31 → N.OB 06-06 15:00
PROVIDERS: ADMIT Obstetrics & Gynecology; ATTEND Obstetrics & Gynecology

== ENCOUNTER 2017-07-01 11:46 | Inpatient (IN) ==
[2017-07-01 13:08] LABS: Basophils % 0.3 % (0.0-0.8); Eosinophils # 0.1 10*3/uL (0.0-0.87); Eosinophils % 0.6 % (0.00-10.9); Hemoglobin 11.7 GM/DL (12.0-16.0); Immature Granulocytes % 0.4 %; Immature Granulocytes Absolute 0.03 #; Lymphocytes # 1.7 10*3/uL (1.4-4.0); Lymphocytes % 22.2 % (21.3-54.2); Mean Corpuscular HGB Conc 34.4 GM/DL (32-36); Mean Corpuscular Hemoglobin 30 PG (27-34); Mean Corpuscular Volume 87.9 FL (87-102); Mean Platelet Volume 9.7 FL (9.6-12.0); Monocytes # 0.5 10*3/uL (0.11-0.8); Neutrophils # 5.4 10*3/uL (1.4-7.4); Neutrophils % 69.5 % (38.7-73.9); Platelet Count 226 T/CUMM (130-400); Red Blood Count 3.87 MC/CUMM (3.8-5.5); Red Cell Distribution Width 14.6 % (9.3-17.3); White Blood Count 7.8 T/CUMM (4-12)
[2017-07-01 13:18] LABS: INR 0.9; PT Patient Result 9.7 SECS; Partial Thromboplastin Time 29.2 SECS (0-40)
[2017-07-01 13:32] LABS: Barbiturates Screen,Urine Negative (Negative); Benzodiazepines Screen,Urine Negative (Negative); Cannabinoid Screen,Urine Negative (Negative); Opiate Screen,Urine Negative (Negative); Phencyclidine Screen,Urine Negative (Negative)
--- NOTE | 2017-07-01 13:33 | Ultrasound Report ---
History: Chronic hypertension Date: 07/01/2017 Study: ultrasound biophysical profile Comparison exam: June 06, 2017 ultrasound study images available Real-time ultrasound images are captured and archived. There is a single intrauterine fetus in vertex presentation with a heart rate of 160 bpm. The maternal cervix is grossly closed and measures 3.2 cm length. The DAVID measures a normal 9.8 cm. The placenta is posterior without previa. breathing movements, gross body movements, tone, and qualitative amniotic fluid volume are normal. Impression: Low risk for chronic asphyxia. The biophysical profile score is a normal 8 out of 8 PROCEDURE INTERPRETED AT [facility] DEPARTMENT OF RADIOLOGY Final Report Signed by: Dr. Gisel Castillo
--- NOTE | 2017-07-01 13:33 | Ultrasound Report ---
US OB >= 14 weeks fetus Indication: Elevated blood pressure. Comparison: None. Technique: Using a transabdominal probe, multiple grayscale, color Doppler, and spectral Doppler images of the uterus and bilateral ovaries were captured and stored. Findings: Single fetus with fundal placenta lies in cephalic position. heart rate is 155 bpm. Amniotic fluid index is 10.22 cm. Measurement of biparietal diameter 37 weeks 6 days, head circumference 37 weeks 6 days, abdominal circumference 37 weeks 1 day, and femur length 36 weeks 0 days results in an estimated composite gestational age of 37 weeks 2 days. The estimated date of delivery is July 20, 2017. Four-chamber heart is present. The appearance of the stomach and bladder is unremarkable. The spine demonstrates no significant abnormality. Entirety of the sacrum is not included on study. Ovaries are not identified likely secondary to stage of gestation. Impression: 1. Single fetus is present as detailed. 07/01/2017 1:29 PM PROCEDURE INTERPRETED AT [facility] DEPARTMENT OF RADIOLOGY Final Report Signed by: Dr. Josesito Guzmán
[2017-07-01 13:36] LABS: Alanine Aminotransferase 22 U/L (13-56); Albumin 2.6 G/DL (3.4-5.0); Alkaline Phosphatase 130 U/L (45-117); Amylase 78 U/L (25-115); Aspartate Amino Transferase 15 U/L (0-37); Bilirubin,Total < 0.39 MG/DL (0.2-1.0); Blood Urea Nitrogen 10 MG/DL (7-18); Calcium 8.9 MG/DL (8.5-10.1); Glucose 80 MG/DL (74-106); Osmolality,Calculated 270.8 MOS/KG (273-304); Potassium 3.7 MMOL/L (3.5-5.1); Sodium 137 MMOL/L (136-145); Total Protein 6.7 G/DL (6.4-8.3); Uric Acid 4.6 MG/DL (2.6-6.0)
[2017-07-01 15:00] LABS: Apearance,Urine CLOUDY (Clear); Bacteria,Urine Moderate /HPF (Few); Bilirubin,Urine Negative (Negative); Blood, Urine Small mg/dL (Negative); Glucose,Urine (UA) Negative (Negative); Ketones,Urine Negative (Negative); Mucus,Urine Many /LPF (Occasional); Nitrite,Urine Negative (Negative); Protein,Urine 30 MG/DL; RBC,Urine 12 /HPF (0-4); Squamous Epithelial Cell,Urine Moderate /HPF (0-10); Urine Specific Gravity 1.029 (1.001-1.035); WBC,Urine 5 /HPF (0-6)
[2017-07-01 15:01] LABS: Urine Color Dark yellow (Yellow)
[2017-07-01] MEDS: LABETALOL 200 MG TABLET PO SCH ×2 (15:37→21:53)
[2017-07-01] MEDS ORDERED: ONDANSETRON 4 MG/2 ML VIAL IV PRN ×2 (16:03→19:11)
[2017-07-01] MEDS ORDERED: LACTATED RINGERS 1,000 ML IV ONE (16:03)
[2017-07-01] MEDS ORDERED: FAMOTIDINE 20 MG/2 ML VIAL IV ONE (16:08)
[2017-07-01] MEDS ORDERED: PROMETHAZINE 25 MG/1 ML VIAL IM ONE (16:08)
[2017-07-01] MEDS ORDERED: diphenhydrAMINE 50 MG/1 ML VIAL IV PRN ×2 (16:08)
[2017-07-01] MEDS ORDERED: CITRIC ACID/SODIUM CITRATE 30 ML UDCUP PO ONE (16:08)
[2017-07-01] MEDS ORDERED: ePHEDrine 50 MG/ML AMP IV PRN (16:08)
[2017-07-01] MEDS ORDERED: hydrOXYzine HCL 25 MG/1 ML VIAL IM PRN (16:08)
[2017-07-01] MEDS ORDERED: OXYTOCIN/LR 20 UNIT/1,000 ML BAG IV ONE ×2 (16:14→19:11)
[2017-07-01] MEDS ORDERED: ceFAZolin 2,000 MG in PREMIX 1 EACH IV ONE (16:15)
[2017-07-01 16:34] LABS: Apearance,Urine CLEAR (Clear); Bilirubin,Urine Negative (Negative); Blood, Urine Moderate mg/dL (Negative); Glucose,Urine (UA) Negative (Negative); Ketones,Urine 80 mg/dL (Negative); Mucus,Urine Occasional /LPF (Occasional); Nitrite,Urine Negative (Negative); Protein,Urine 30 MG/DL; RBC,Urine 14 /HPF (0-4); Squamous Epithelial Cell,Urine Occasional /HPF (0-10); Urine Color Yellow (Yellow); Urine Specific Gravity 1.029 (1.001-1.035); WBC,Urine 1 /HPF (0-6)
--- NOTE | 2017-07-01 16:51 | OB/GYN History & Physical ---
History of Present Illness Chief complaint: Sent from the clinic secondary to labile blood pressures, headaches, edema History of present illness: Patient is a 31-year-old 3 para 2001 that presented from the clinic with complaints of headaches every other day, edema noted to both lower extremities at 1+, blood pressure initially 130/90 with repeat blood pressure 124/72. It was consulted with Dr. Davis at that time per myself for patient to follow the hospital for a 24-hour urine, serial blood pressures, and PIH labs. She is 36.3 weeks gestation today. She receives care at [facility] with Dr. Wolfe. She had a total of 7 visits and 3 ultrasounds. Her records are available, current, and up to date. During the course of her , she initiated care at approximately 15.2 weeks gestation, she had a urine drug screen positive for cannabinoids on December in March 24, 2017, she had vitamin D deficiency at 9.2 in which she was treated with vitamin D 50,000 units every week 8 and then 5000 units daily, she had a failed 1 hour GTT at 153 patient refused a 3 hour GTT and a hemoglobin A1c was obtained on 05/26/2017 and it was 5.6%, her GBS is positive, on today she did have labile blood pressures and she was sent to the hospital for blood pressures to be evaluated. 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 In 2008 she had a 39 week male weighing 8 lbs. 9 oz. by primary section secondary to potential macrosomia; 2014 she had a repeat section at 39 weeks gestation of a female weighing 6 lbs. 4 oz. 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 She stated that was her last use of marijuana and denies any recent marijuana use denies any alcohol use or tobacco use Labs: Blood type and RH B+, antibody screen negative, Rubella immune, HIV negative, HBsAG negative, GC negative, Chlamydia negative, Diabetic Screen on it was 153 no follow-up 3 hour GTT was obtained because patient refused , GBS positive, urine drug screen on 420 05/15 and 01/25/17 were positive for cannabinoids, urine drug screen for 06/16/2017 was negative; hemoglobin A1c on was 5.6% Home Medications Medication Instructions Recorded Confirmed Type Vits #90/Iron Fum/FA 1 tablet PO DAILY 03/29/17 07/01/17 History [ Formula Tablet] Labetalol Tab [Trandate Tab] 200 mg PO BID #60 tablet 06/08/17 07/01/17 Rx Allergies Allergy/AdvReac Type Severity Reaction Status Date / Time No Known Allergies Allergy Verified 07/01/17 12:32 12 point system: reviewed and no additional remarkable complaints except as stated - EENT Nose, mouth and throat: Present: headache(s) (Every other day without any relief with Tylenol extra strength [id number]) - Cardiovascular Cardiovascular: Present: edema (1+ to both lower extremities noted complained of increased edema at home and at night sporadically even with her feet elevated ) Medical,Surgical,& Family Hx - Medical History Reproductive: No history of: Ectopic , Complication Other: History of: Miscellaneous Medical Problems (obesity) - Surgical History HEENT Surgeries: Surgical HX of: Tonsilectomy & Adenoidectomy (1999) Reproductive Surgeries: Surgical HX of;: Section (2008 & 2014) - Family History Family History: Reports;: Family Diabetes (Maternal grandmother), Family Hypertension (Mother and Father, MGM) - Social History Smoking Status: Never smoker Type of Drug Use: Marijuana (States last use was April 2017) Marital Status: Single Lives With:: Children Functional capacity: independent ambulation 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: Vital Signs Pulse Resp BP 07/01/17 15:00 82 20 161/97 07/01/17 14:00 83 18 151/76 General appearance: over weight - Antepartum / Post Antepartum Exam Rupture: Intact Presentation: vtx Heart Rate: 140s with minimal variability and accelerations [place]: Occasional/50 seconds/mild Breast: bilateral: normal Abdomen obstetrics: Present: bowel sounds normal Vagina: Present: normal moisture Uterus exam: Present: enlarged (Gravid, fundal height at 37 cm) Adnexa: bilateral: normal - Head Head exam: Present: normal inspection - Eye Eye exam: Present: EOMI - Neck Neck exam: Present: normal inspection - Respiratory Respiratory exam: Present: clear to auscultation bilaterally - Cardiovascular Cardiovascular exam: Present: regular rate and rhythm - GI/Abdominal GI/Abdominal exam: Present: normal bowel sounds - Extremities Exam Extremities exam: Present: normal capillary refill, full ROM, edema (1+ noted to both lower extremitiesExtremities well) - Back Exam Back exam: Present: normal inspection - Neurological Exam Neurological exam: Present: alert, oriented X3, normal gait - Psychiatric Psychiatric exam: Present: normal affect, normal mood - Skin Skin exam: Present: normal color, warm, dry Assessment and Plan (1) Group beta Strep positive Status: Acute Current Visit: Yes (2) Gestational hypertension Status: Acute Current Visit: Yes (3) Pre-eclampsia or eclampsia superimposed on pre-existing hypertension, antepartum Status: Acute Assessment and plan: Consult the Dr. Davis prepare for patient to have repeat section with a tubal ligation. Risks of surgery discussed with the patient to include pain, infection, injury to bladder and/or bowel, possible lysis or removal of adhesions. Patient verbalized understanding. Agree with plan to proceed with repeat section with a tubal ligation Current Visit: Yes (4) Labile blood pressure Status: Chronic Current Visit: No (5) PIH ( induced hypertension) Status: Acute Current Visit: No (6) Obesity Status: Chronic Current Visit: No (7) H/O section Status: Acute Current Visit: No (8) H/O cannabis abuse Status: Chronic Current Visit: No (9) Vitamin D deficiency Status: Acute Current Visit: No Results - Labs CBC & BMP: 07/01/17 12:59 07/01/17 12:59 Labs: Laboratory Tests 07/01/17 07/01/17 07/01/17 12:00 12:59 12:59 WBC 7.8 RBC 3.87 Hgb 11.7 L Hct 34.0 L MCV 87.9 MCH 30 MCHC 34.4 RDW 14.6 Plt Count 226 MPV 9.7 Neut % (Auto) 69.5 Lymph % (Auto) 22.2 Pope % (Auto) 7.0 Eos % (Auto) 0.6 Baso % (Auto) 0.3 Neut # (Auto) 5.4 Lymph # (Auto) 1.7 Pope # (Auto) 0.5 Eos # (Auto) 0.1 Baso # (Auto) 0.0 Immature Gran % 0.4 Nucleated RBC % 0.0 Immature Gran # 0.03 Nucleated RBCs # 0.00 Immature Plt Fraction 0.0 INR 0.9 PT Patient/Control Mix 9.7 Fibrinogen 454 H Circ Anticoag PTT 29.2 Sodium Potassium Chloride Carbon Dioxide Anion Gap BUN Creatinine GFR Calculation BUN/Creatinine Ratio Glucose Hemoglobin A1c Calculated Osmolality Uric Acid Calcium Total Bilirubin AST ALT Alkaline Phosphatase Total Protein Albumin Globulin Albumin/Globulin Ratio Amylase Lipase Urine Color Dark yellow Urine Appearance Cloudy Urine pH 5.0 Ur Specific [place] 1.029 Urine Protein 30 Urine Glucose (UA) Negative Urine Ketones Negative Urine Blood Small Urine Nitrate Negative Urine Bilirubin Negative Urine Urobilinogen 2.0 H Urine Leukocytes Trace Urine RBC 12 Urine WBC 5 Ur Squamous Epith Cells Moderate Urine Bacteria Moderate Urine Mucus Many Ur Culture Indicated? Not indicated Urine Opiates Screen Ur Barbiturates Screen Ur Phencyclidine Scrn U Amphetamine/Methamph U Benzodiazepines Scrn U Cocaine Metab Screen U Cannabinoids Screen 07/01/17 07/01/17 07/01/17 12:59 12:59 13:19 WBC RBC Hgb Hct MCV MCH MCHC RDW Plt Count MPV Neut % (Auto) Lymph % (Auto) Pope % (Auto) Eos % (Auto) Baso % (Auto) Neut # (Auto) Lymph # (Auto) Pope # (Auto) Eos # (Auto) Baso # (Auto) Immature Gran % Nucleated RBC % Immature Gran # Nucleated RBCs # Immature Plt Fraction INR PT Patient/Control Mix Fibrinogen Circ Anticoag PTT Sodium 137 Potassium 3.7 Chloride 106 Carbon Dioxide 22 Anion Gap 12.7 BUN 10 Creatinine 0.50 L GFR Calculation 187 BUN/Creatinine Ratio 20.00 Glucose 80 Hemoglobin A1c 5.9 Calculated Osmolality 270.8 L Uric Acid 4.6 Calcium 8.9 Total Bilirubin < 0.39 AST 15 ALT 22 Alkaline Phosphatase 130 H Total Protein 6.7 Albumin 2.6 L Globulin 4.1 H Albumin/Globulin Ratio 0.6 L Amylase 78 Lipase 213.0 Urine Color Urine Appearance Urine pH Ur Specific [place] Urine Protein Urine Glucose (UA) Urine Ketones Urine Blood Urine Nitrate Urine Bilirubin Urine Urobilinogen Urine Leukocytes Urine RBC Urine WBC Ur Squamous Epith Cells Urine Bacteria Urine Mucus Ur Culture Indicated? Urine Opiates Screen Negative Ur Barbiturates Screen Negative Ur Phencyclidine Scrn Negative U Amphetamine/Methamph Negative U Benzodiazepines Scrn Negative U Cocaine Metab Screen Negative U Cannabinoids Screen Negative 07/01/17 16:05 WBC RBC Hgb Hct MCV MCH MCHC RDW Plt Count MPV Neut % (Auto) Lymph % (Auto) Pope % (Auto) Eos % (Auto) Baso % (Auto) Neut # (Auto) Lymph # (Auto) Pope # (Auto) Eos # (Auto) Baso # (Auto) Immature Gran % Nucleated RBC % Immature Gran # Nucleated RBCs # Immature Plt Fraction INR PT Patient/Control Mix Fibrinogen Circ Anticoag PTT Sodium Potassium Chloride Carbon Dioxide Anion Gap BUN Creatinine GFR Calculation BUN/Creatinine Ratio Glucose Hemoglobin A1c Calculated Osmolality Uric Acid Calcium Total Bilirubin AST ALT Alkaline Phosphatase Total Protein Albumin Globulin Albumin/Globulin Ratio Amylase Lipase Urine Color Yellow Urine Appearance Clear Urine pH 5.0 Ur Specific [place] 1.029 Urine Protein 30 Urine Glucose (UA) Negative Urine Ketones 80 Urine Blood Moderate Urine Nitrate Negative Urine Bilirubin Negative Urine Urobilinogen 2.0 H Urine Leukocytes Negative Urine RBC 14 Urine WBC 1 Ur Squamous Epith Cells Occasional Urine Bacteria Urine Mucus Occasional Ur Culture Indicated? Not indicated Urine Opiates Screen Ur Barbiturates Screen Ur Phencyclidine Scrn U Amphetamine/Methamph U Benzodiazepines Scrn U Cocaine Metab Screen U Cannabinoids Screen Quality Measures - VTE Contraindication to Pharmacological VTE Prophylaxis: Clinical assessment deems Pt at low risk, no prophalaxis needed
[2017-07-01] MEDS ORDERED: ONDANSETRON 4 MG/2 ML VIAL ONE (17:00)
[2017-07-01] MEDS ORDERED: PHENYLEPHRINE 1 MG/10 ML SYRINGE IV ONE (17:00)
--- NOTE | 2017-07-01 17:16 | OB/GYN Progress Note ---
Assessment and Plan (1) Gestational hypertension Status: Acute Assessment and plan: 1. admit to labor and delivery for gestational hypertension with superimposed pre-eclampsia- blood pressures ranging in 140-172/90-100s at hospital. 1+ Proteinuria. Pt. bp in the clinic ranged from 120s-130s/ 70-80s until today. 2. Pt. with hx of previous 2 deliveries therefore will have delivery by repeat . Pt. also desires permanent sterilization and signed tubal papers for a bilateral tubal sterilization.Risk of surgery discussed including risk of bleeding, infection, bowel or bladder injury, hysterectomy etc and patient expressed her understanding. Pt. aware of both nonpermanent and permanent control options including nonpermanent control pills, iud , nexplanon, nuva ring, depo provera, male partner vasectomy, etc and patient wants permanent sterilization with a bilateral tubal sterilization. all questions answered and again patient expressed her understanding. 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 31y/o @ 36+4wks VANI 07/26/17 dated by ultrasound with Gestational hypertension on labetalol, obesity, GBS +, and previous C/S x 2 presents from the clinic with borderline elevated blood pressure, 1+ proteinuria, occasional headache and lower extremity swelling. [facility] and complicated by late care, + drug screen for cannabinoids, abnormal GCT and refused 3hr GTT. Pt. denies vaginal bleeding, decreased movement or contractions. Denies any leakage of fluid. Exam CURTAIN SUPERVISOR - Constitutional Vitals: Vital Signs Pulse Resp BP 07/01/17 15:00 82 20 161/97 07/01/17 14:00 83 18 151/76 General appearance: no acute distress - Antepartum / Post Antepartum Exam Cervix - Dilatation: closed Heart Rate: 155bpm min to moderate variability, + acceleration, [place]: irregular contractions Results - Labs CBC & BMP: 07/01/17 12:59 07/01/17 12:59
[2017-07-01] MEDS ORDERED: TISSUE ADHESIVE 1 EACH APPLICATOR TOP ONE (18:46)
--- NOTE | 2017-07-01 19:09 | Operative Note ---
Date of procedure: 07/01/17 Pre-op diagnosis: 31y/o prev. c/s x 2 with Gest. HTN with superimposed Pre -eclampsia Post-op diagnosis: same Procedure: PREOPERATIVE DIAGNOSIS: 31Y/O @ 36+4WKS WITH PREVIOUS C/S X 2, OBESITY, LATE START TO CARE, ABNORMAL GCT, POSITIVE URINE DRUG SCREEN, POSITIVE GBS, GESTATIONAL HYPERTENSION WITH SUPERIMPOSED PRE-ECLAMPSIA DESIRING PERMANENT STERILIZATION, CATEGORY 2 TRACING WITH MINIMAL TO MODERATE VARIABILITY POSTOPERATIVE DX: SAME FINDINGS: FEMALE INFANT DELIVERED AT 1754 IN THE OFELIA POSITION, VERTEX PRESENTATION WITH 9/9 APGARS AND WEIGHING [id number] The patient was brought to the operating room after her spinal preparation, and Kaufman had been performed. The abdomen was prepped and draped in the normal sterile fashion and tested for analgesia. When found to be adequate, a low- abdominal Pfannenstiel incision was made with the first knife and carried down to the fascia with the the scalpel. The fascia was cleared of subcutaneous tissue. Bleeding points were clamped with hemostats and Bovie coagulated. The fascia was incised in the midline and extended laterally with curved Norwood scissors. Rudy clamps were placed on the fascial edge, anteriorly. The rectus muscles were by sharp dissection. Careful dissection not to injure underlying bowel proceeded for 30minutes until the rectus muscles were divided in the midline and the parietoperitoneum was entered into. Upon entrance it was noted that the muscle was adhesed to ometum this was lysed with sharp dissection and carefully entered and the incision extended with Metzenbaum scissors. The bladder blade was inserted. The visceroperitoneum was grasped with smooth pickups, entered with Metzenbaum scissors, and extended laterally. The bladder flap was created by gentle blunt dissection and placed behind the bladder blade. Uterine incision was made 2cm above the lower uterine segment due to dense adhesions. I carefully made an incision with a scalpel and extended laterally with bandage scissors. A living female was delivered atraumatically from the vertex presentation. The baby was suctioned and cried immediately, and was handed to the pediatric team in attendance. The placenta was delivered with gentle uterine massage. The uterus was explored with a wet lap sponge and found to be clear of membranes. The angles of the incision were sutured 0 vicryl in a locked running fashion x 2. Hemostasis was carefully checked and found to be satisfactory. The fallopian tubes and ovaries were inspected and found to be normal bilaterally, I again asked the patient was she sure she wanted a tubal sterilization and again she confirmed she did. My attention was turned to the left fallopian tube in which I followed out to the fimbriae and 1-2cm from the cornua I placed a filshie clip x 2, encompassing the entire width of the fallopian tube. I then turned my attention to the right fallopian tube and in a similar manner I followed out the tube to the fimbriae and 1-2cm from the cornua I placed a filshie clip x 2, making sure the entire width of the tube was included in the clip. Interceed was then placed over the uterine incision. The peritoneum was approximated using 2. 0 chromic in a running fashion. The muscle was reapproximated using 2.0 chromic in an interrupted fashion. The fascia was closed with 0-Vicryl in a running fashion. The subcutaneous tissue was approximated with interrupted 2-0 plain catgut. The skin was closed in a subcuticular fashion with 4.0 monocryl. The patient was transferred to the recovery room in good condition. Anesthesia: spinal Surgeon / Physician: Odilia Davis Estimated blood loss: other (800cc) Specimens: other (placenta, cord, membranes) Condition: stable Disposition: observation Results - Labs CBC & BMP: 07/01/17 12:59 07/01/17 12:59 Discharge Plan - Discharge Medications No Action Vits #90/Iron Fum/FA [ Formula Tablet] 1 tablet PO DAILY Labetalol Tab [Trandate Tab] 200 mg PO BID #60 tablet - Follow Up or Referral - Forms/Instructions
[2017-07-01] MEDS ORDERED: fentaNYL 100 MCG/2 ML VIAL ONE (19:11)
[2017-07-01] MEDS ORDERED: RHO(D) IMMUNE GLOBULIN 300 MCG SYRINGE IM ONE (19:11)
[2017-07-01] MEDS ORDERED: ACETAMINOPHEN 325 MG TABLET PO PRN (19:11)
--- NOTE | 2017-07-01 19:16 | Anesthesia Post-Op ---
Anesthesia Post OP - Post Ansesthetic Evaluation Patient seen in post op: Yes Resp: within normal limits CV: within normal limits Mental: within normal limits Temp: within normal limits [id number]: within normal limits Nausea and Vomiting: within normal limits Pain: within normal limits
[2017-07-01 19:21] LABS: Cord Arterial Blood HCO3 19.6 MMOL/L
[2017-07-01 19:24] LABS: Cord Venous Blood HCO3 22.5 MMOL/L; Cord Venous Blood PCO2 44.1 MMHG; Cord Venous Blood PO2 36.3
[2017-07-01] MEDS ORDERED: LACTATED RINGERS 1,000 ML IV SCH (19:30)
[2017-07-01] MEDS: MAGNESIUM SULF DRIP 40 GM/1,000 ML ML IV SCH (20:30)
[2017-07-01] MEDS: IBUPROFEN 800 MG TABLET PO PRN (21:00)
[2017-07-01] MEDS ORDERED: HYDROmorphone PCA 30 MG/30 ML SYRINGE IV ONE (23:18)
[2017-07-01] MEDS ORDERED: HYDROmorphone PCA 30 MG/30 ML SYRINGE IV SCH (23:30)
[2017-07-01] MEDS: LACTATED RINGERS 1,000 ML IV SCH (23:42)
[2017-07-01] MEDS: DOCUSATE SODIUM 100 MG CAPSULE PO SCH (23:42)
[2017-07-02] MEDS: LACTATED RINGERS 1,000 ML IV SCH ×2 (03:01→11:07)
[2017-07-02 06:35] LABS: Basophils % 0.2 % (0.0-0.8); Eosinophils % 0.1 % (0.00-10.9); Hematocrit 34.7 VOL% (35.7-47.0); Hemoglobin 11.8 GM/DL (12.0-16.0); Immature Granulocytes % 0.3 %; Immature Granulocytes Absolute 0.03 #; Lymphocytes # 1.2 10*3/uL (1.4-4.0); Lymphocytes % 10.6 % (21.3-54.2); Mean Corpuscular Hemoglobin 30 PG (27-34); Mean Corpuscular Volume 88.5 FL (87-102); Mean Platelet Volume 9.7 FL (9.6-12.0); Monocytes # 0.7 10*3/uL (0.11-0.8); Monocytes % 6.8 % (1.7-12.7); Neutrophils # 8.9 10*3/uL (1.4-7.4); Platelet Count 232 T/CUMM (130-400); Red Blood Count 3.92 MC/CUMM (3.8-5.5); Red Cell Distribution Width 14.6 % (9.3-17.3); White Blood Count 10.8 T/CUMM (4-12)
--- NOTE | 2017-07-02 07:22 | OB/GYN Progress Note ---
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 Her incision is dry and intact She has decreased lochia Assessment #1 day #1 doing well Plan continue present management with continued IV magnesium sulfate for 12 hours. We will continue antihypertensive therapy and consider transferring patient to the floor later today Exam DRY TALC RACKER - Constitutional Vitals: Vital Signs Temp Pulse Pulse Resp BP BP Pulse Ox 07/02/17 06:00 18 07/02/17 05:15 102 H 18 167/89 98 07/02/17 05:00 18 07/02/17 04:15 102 H 18 165/91 98 07/02/17 04:00 18 07/02/17 03:15 108 H 18 137/95 98 07/02/17 03:00 18 07/02/17 02:15 94 H 18 160/95 97 07/02/17 02:00 18 07/02/17 01:00 18 07/02/17 00:45 85 18 147/88 98 07/02/17 00:15 82 18 153/88 95 07/01/17 23:52 18 07/01/17 23:30 80 20 165/89 99 07/01/17 23:27 82 20 176/93 07/01/17 23:00 18 07/01/17 22:00 18 07/01/17 21:00 97.5 F L 07/01/17 15:00 82 20 161/97 07/01/17 14:00 83 18 151/76 Results - Labs CBC & BMP: 07/02/17 06:20 07/01/17 12:59
[2017-07-02] MEDS: LABETALOL 200 MG TABLET PO SCH ×3 (08:29→21:39)
[2017-07-02] MEDS: MAGNESIUM SULF DRIP 40 GM/1,000 ML ML IV SCH (14:45)
[2017-07-02] MEDS: MULTIVITAMIN (PRENATAL) TABLET PO SCH (19:23)
[2017-07-02] MEDS: DOCUSATE SODIUM 100 MG CAPSULE PO SCH ×2 (19:23→20:45)
[2017-07-02] MEDS: IBUPROFEN 800 MG TABLET PO PRN (19:32)
[2017-07-02] MEDS: SIMETHICONE CHEW 80 MG TABLET PO PRN (20:45)
[2017-07-02] MEDS: MAGNESIUM HYDROXIDE SUSP 30 ML UDCUP PO PRN (20:45)
[2017-07-02] MEDS ORDERED: BISACODYL 10 MG SUPP RECTAL PRN (22:24)
[2017-07-03] MEDS: LABETALOL 200 MG TABLET PO SCH ×3 (05:53→22:19)
[2017-07-03] MEDS: DOCUSATE SODIUM 100 MG CAPSULE PO SCH ×2 (08:15→20:50)
[2017-07-03] MEDS: MULTIVITAMIN (PRENATAL) TABLET PO SCH (08:16)
[2017-07-03] MEDS: MAGNESIUM HYDROXIDE SUSP 30 ML UDCUP PO PRN ×2 (08:16→20:50)
[2017-07-03] MEDS: SIMETHICONE CHEW 80 MG TABLET PO PRN ×2 (08:16→20:50)
--- NOTE | 2017-07-03 09:15 | OB/GYN Progress Note ---
CHIEF LIBRARIAN CIRCULATION DEPARTMENT - PN: Subj Interval history: This postop day #[address] Wolfe for PIH and is post mag and on labetalol. Patient is doing well she is eating and ambulating voiding. She is afebrile her vital signs are stable. Her incision is dry and intact and she has bowel sounds present. She has mild lochia. Assessment #1 postop day #2 doing well Plan continue present management probable DC tomorrow Exam CHIEF LIBRARIAN CIRCULATION DEPARTMENT - Constitutional Vitals: Vital Signs Temp Pulse Pulse Resp BP BP Pulse Ox 07/03/17 08:53 20 07/03/17 08:00 97.1 F L 97 H 20 130/75 99 07/03/17 05:53 94 H 20 129/67 98 07/03/17 04:00 97.4 F L 90 24 108/65 95 07/03/17 02:00 95 H 24 103/60 95 07/03/17 00:00 97.1 F L 96 H 20 138/80 95 07/02/17 21:39 107 H 24 122/75 96 07/02/17 19:45 98.9 F 104 H 20 134/76 95 07/02/17 09:53 18 Results - Labs CBC & BMP: 07/02/17 06:20 07/01/17 12:59
[2017-07-03] MEDS: IBUPROFEN 800 MG TABLET PO PRN (23:43)
[2017-07-04] MEDS ORDERED: oxyCODONE/ACETAMINOPHEN 5-325 MG TABLET PO PRN ×2 (00:54→00:55)
[2017-07-04] MEDS: LABETALOL 200 MG TABLET PO SCH (06:10)
[2017-07-04] MEDS: DOCUSATE SODIUM 100 MG CAPSULE PO SCH (09:05)
[2017-07-04] MEDS: MAGNESIUM HYDROXIDE SUSP 30 ML UDCUP PO PRN (09:09)
[2017-07-04] MEDS: MULTIVITAMIN (PRENATAL) TABLET PO SCH (09:09)
[2017-07-04] MEDS: SIMETHICONE CHEW 80 MG TABLET PO PRN (09:09)
[2017-07-04 10:51] VITALS: BP 128/83
--- NOTE | 2017-07-06 11:17 | Pathology Report from [facility] ---
[facility] ACCESSION # : [id number] PATIENT NAME : Alexandra Delatorre ORDERING DR : Odilia Davis MD CLINICAL HX: IUP @ 36.2 wks, chronic HTN, previous C-S, requested sterlization POST-OP DX: Same SPECIMEN INFO: Placenta GROSS DESCRIPTION: Received fresh labeled with the patients name and consists of a 345 gram placenta which measures 16.5 x 14.5 x 2.3 cm. membranes are pink-kelsey and translucent. The umbilical cord measures 26.0 cm, contains three vessels and is pericentrally inserted. The surface is blue-foreman with a few small areas of subchorionic fibrin noted. The maternal surface displays intact red-foreman cotyledons with no abnormalities appreciated upon sectioning. Sections submitted: A membranes and cord, B and maternal surfaces. DIAGNOSIS FOR ALEXANDRA DELATORRE: PLACENTA, MEMBRANES, UMBILICAL CORD: Focal placental infarction with dystrophic calcification, mild intervillous blood. Tri-vessel umbilical cord, pericentrally inserted. Membranes with focal chronic inflammation and attached blood. COLLECTED DATE: 07/05/2017 [facility] REPORT DATE: 07/06/2017 ELECTRONICALLY SIGNED BY: Steve Teran M.D. 07/06/2017 - 9:43:12 [facility]Rain
== END 2017-07-04 12:30 | disposition home or self-care (01) | DRG 765 ==
LOC: N.LDOUT 11:46 → N.LD 11:47 → N.OB 07-02 19:53
PROVIDERS: ADMIT Obstetrics & Gynecology; ATTEND Obstetrics & Gynecology

== ENCOUNTER 2017-07-19 13:57 | Inpatient (IN) ==
[2017-07-19] MEDS ORDERED: cefTRIAXone 1,000 MG in SODIUM CHLORIDE 0.9% 100 ML IV STA (15:06)
[2017-07-19] MEDS ORDERED: SODIUM CHLORIDE 0.9% 1,000 ML IV STA (15:06)
[2017-07-19 15:18] LABS: Basophils % 0.2 % (0.0-0.8); Hematocrit 33.3 VOL% (35.7-47.0); Hemoglobin 11.2 GM/DL (12.0-16.0); Immature Granulocytes % 0.7 %; Immature Granulocytes Absolute 0.12 #; Lymphocytes % 12.4 % (21.3-54.2); Mean Corpuscular HGB Conc 33.6 GM/DL (32-36); Mean Corpuscular Hemoglobin 29 PG (27-34); Mean Corpuscular Volume 84.9 FL (87-102); Mean Platelet Volume 9.4 FL (9.6-12.0); Monocytes # 1.4 10*3/uL (0.11-0.8); Monocytes % 8.3 % (1.7-12.7); Neutrophils # 12.8 10*3/uL (1.4-7.4); Neutrophils % 78.4 % (38.7-73.9); Platelet Count 413 T/CUMM (130-400); Red Blood Count 3.92 MC/CUMM (3.8-5.5); Red Cell Distribution Width 14.2 % (9.3-17.3); White Blood Count 16.3 T/CUMM (4-12)
[2017-07-19 15:34] LABS: INR 1.2; PT Patient Result 12.4 SECS
--- NOTE | 2017-07-19 15:39 | CT Report ---
History: Abdominal pain and fever. Postop July 01, 2017 Date: 07/19/2017 Study: CT abdomen and pelvis with IV contrast Comparison exam: No previous abdomen and pelvis CT available for comparison Technique: Spiral CT sections were obtained from the lung bases to the pubic symphysis following 100 mL Omnipaque 350 IV. Total DLP measures 2285.6 mGy*cm. The CT exam was performed using one or more of the following dose reduction techniques: Automated exposure control, adjustment of the mA and/or kV according to patient size, or use of iterative reconstruction technique. CT abdomen: The partially visualized lung bases are generally clear. There is no gross pleural or pericardial effusion. There is no evidence of peritoneal free air. The liver, spleen, pancreas, bile ducts, gallbladder, adrenal glands, and kidneys are generally unremarkable in CT appearance. There is no aortic aneurysm. There is no lymphadenopathy in the upper abdomen. There is bilateral renal excretion without hydronephrosis. CT Pelvis: There is a confined fluid collection immediately anterior to the uterus, measuring 96 x 46 x 44 mm maximum dimensions. This contains an occasional small air bubble. There is some moderate inflammatory change in the adjacent fat. There is also an area of loculated fluid in the posterior cul-de-sac at the midline, measuring 42 x 23 x 37 mm. There is some presumed rectus sheath hematoma anteriorly measuring 2.5 cm thickness, separate from either of the loculated fluid collections. Impression: Abnormal 9.6 confined fluid collection immediately anterior to the uterus compatible with abscess, given the presence of small air bubbles, almost 3 weeks out from surgery. Additional 4.2 cm confined fluid collection in the posterior cul-de-sac, presumably abscess as well. Findings were discussed with Dr. Deven Castellanos in the emergency room. PROCEDURE INTERPRETED AT [facility] DEPARTMENT OF RADIOLOGY Final Report Signed by: Dr. Gsiel Castillo
[2017-07-19 15:41] LABS: Albumin 2.5 G/DL (3.4-5.0); Bilirubin,Total 1.1 MG/DL (0.2-1.0); Calcium 8.3 MG/DL (8.5-10.1); Osmolality,Calculated 266.1 MOS/KG (273-304); Total Protein 7.3 G/DL (6.4-8.3)
[2017-07-19] MEDS ORDERED: POTASSIUM CHLORIDE 20 MEQ TABLET PO STA (15:47)
--- NOTE | 2017-07-19 15:48 | XRay Report ---
XR chest 2V Indication: Shortness of breath and fever. Chest 2 views: No comparison. The heart size and mediastinal contour are normal. The lungs and pleural spaces are clear. Bones are unremarkable. Impression: Negative chest. PROCEDURE INTERPRETED AT [facility] DEPARTMENT OF RADIOLOGY Final Report Signed by: Jey Johnson M.D.
--- NOTE | 2017-07-19 15:55 | Emergency Department Note ---
Rome Delgado Brooke, am scribing for, and in the presence of, Deven Castellanos MD 15 :04. Emanuel Delgado Charles R, MD, personally performed the services described in this documentation, ascribed by Funmilayo Peter in my presence, and it is both accurate and complete 554 . Arrival - Arrival Chief Complaint: Abdominal / Flank Pain ED Nursing Triage Note: pt had a on 07/01/17 and started having pain and fever yesterday Mode of Arrival: Stretcher Limitations: No Limitations Source: Patient, EMS, RN Notes Reviewed Time Seen by Provider: 07/19/17 14:26 - History of Present Illness HPI Narrative: Patient is a 31 year old female who presents to the ED with c/o incision pain and fever that started yesterday. Patient had a and hysterectomy on 07/01/2017. Patient's temperature during triage was 101.1. She says her abdomen is sore, also. She says she is still having some vaginal bleeding but says it is "light." Patent denies having any other pain and says she had a cough. Patient has no other complaints. Patient has PMHx of gestational HTN. Dr. Mark Reddy performed the c-secition. Onset (ago): day(s) (2) Allergies/Adverse Reactions: Allergies Allergy/AdvReac Type Severity Reaction Status Date / Time No Known Allergies Allergy Verified 07/01/17 12:32 Home Medications: Home Medications Medication Instructions Recorded Confirmed Type Vits #90/Iron Fum/FA 1 tablet PO DAILY 03/29/17 07/01/17 History [ Formula Tablet] Labetalol Tab [Trandate Tab] 200 mg PO BID #60 tablet 06/08/17 07/01/17 Rx Review of System - Review of System 12 point system: reviewed and no additional remarkable complaints except as stated - Review of System Constitutional: Present: fever Respiratory: Present: cough. Absent: respiratory distress Gastrointestinal: Present: abdominal pain Skin: Present: other ( incision pain). Absent: rash Medical,Surgical,& Family Hx - Medical History Cardio: History of: Hypertension Reproductive: No history of: Ectopic , Complication Other: History of: Miscellaneous Medical Problems (obesity) - Surgical History HEENT Surgeries: Surgical HX of: Tonsilectomy & Adenoidectomy (1999) Reproductive Surgeries: Surgical HX of;: Section (2008 & 2014), Tubal Ligation Patient denies;: Hysterectomy - Family History Family History: Reports;: Family Diabetes (Maternal grandmother), Family Hypertension (Mother and Father, MGM) - Social History Smoking Status: Never smoker Frequency of Alcohol Use: None Type of Drug Use: None Exam Vital Signs: Vital Signs Temperature 101.1 F H 07/19/17 14:04 Pulse Rate 120 H 07/19/17 14:04 Respiratory Rate 20 07/19/17 14:04 Blood Pressure 133/84 07/19/17 14:04 O2 Sat by Pulse Oximetry 97 07/19/17 14:04 - General General appearance: alert, in no apparent distress - Head Head exam: Present: atraumatic, normocephalic - Eye Eye exam: Present: normal appearance, PERRL, EOMI - ENT ENT exam: Present: normal exam - Neck Neck exam: Present: normal inspection - Chest Chest inspection: Present: normal inspection, symmetric chest wall rise - Respiratory Respiratory exam: Present: normal lung sounds bilaterally - Cardiovascular Cardiovascular exam: Present: normal rhythm, tachycardia, normal heart sounds - Abdominal Exam Abdominal exam: Present: soft, tenderness (diffuse), normal bowel sounds. Absent: distention - Extremities Exam Extremities exam: Present: normal inspection - Back Exam Back exam: Present: normal inspection - Neurological Exam Neurological exam: Present: alert, oriented X3 - Psychiatric Psychiatric exam: Present: normal affect, normal mood - Skin Skin exam: Present: warm, dry, intact, normal color, other (Abdominal incision healing. No signs of infection but there is warmth surrounding the incision. The incision is also tender but there is not buldging or pus.) Course - Consultations Consultation #1: Dr. Webb will admit patient Time: 15:49 Results - Labs CBC & BMP: 07/19/17 14:55 07/19/17 14:55 Lab Results: I have reviewed the patients labs Labs: Laboratory Tests 07/19/17 14:55 WBC 16.3 H RBC 3.92 Hgb 11.2 L Hct 33.3 L MCV 84.9 L MCH 29 MCHC 33.6 RDW 14.2 Plt Count 413 H MPV 9.4 L Neut % (Auto) 78.4 H Lymph % (Auto) 12.4 L Anderson % (Auto) 8.3 Eos % (Auto) 0.0 Baso % (Auto) 0.2 Neut # (Auto) 12.8 H Lymph # (Auto) 2.0 Anderson # (Auto) 1.4 H Eos # (Auto) 0.0 Baso # (Auto) 0.0 Immature Gran % 0.7 Nucleated RBC % 0.0 Immature Gran # 0.12 Nucleated RBCs # 0.00 Immature Plt Fraction 0.0 Laboratory Tests 07/19/17 07/19/17 14:55 14:55 INR 1.2 PT Patient/Control Mix 12.4 D Sodium 135 L Potassium 3.0 L Chloride 99 Carbon Dioxide 27 Anion Gap 12.0 BUN 5 L Creatinine 0.70 GFR Calculation 168 BUN/Creatinine Ratio 7.00 Glucose 101 Calculated Osmolality 266.1 L Calcium 8.3 L Total Bilirubin 1.10 H AST 23 ALT 21 Alkaline Phosphatase 134 H Lactate Dehydrogenase 255 H C-Reactive Protein 23.40 H Total Protein 7.3 Albumin 2.5 L Globulin 4.8 H Albumin/Globulin Ratio 0.5 L Amylase 78 Lipase 214.0 - Diagnostic Findings Procedure: Chest x-ray: report reviewed by me (Negative chest.), CT Abdomen and Pelvis: report reviewed by me (Abnormal 9.6 confined fluid collection immediately anterior to the uterus compatible with abscess, given the prescence of small air bubbles, almst 3 weeks out from surgery. Additional 4.2cm confined fluid collection in the posterior cul-de-sac, presumably abscess as well. Findings were discussed with Dr. Deven Castellanos in the emergency room.) Critical Care Time Critical Care Time: Yes Total Critical Care Time: 60 Disposition Clinical Impression: Abdominal pain, H/O section, Post op abscess, Postoperative intra-abdominal abscess, Fever, Leukocytosis Case discussed with: patient Disposition: Still a Patient Condition: Guarded Time of Disposition: 16:06 Sepsis - Sepsis Classification of Sepsis: Sepsis - Physical Exam Respiratory exam: clear to auscultation bilaterally Capillary Refill: Less Than 3 Seconds
[2017-07-19] MEDS ORDERED: PIPERACILLIN/TAZOBACTAM 3,375 MG in SODIUM CHLORIDE 0.9% 100 ML IV STA (15:58)
[2017-07-19 16:01] LABS: Apearance,Urine CLEAR (Clear); Bacteria,Urine Occasional /HPF (Few); Bilirubin,Urine Negative (Negative); Blood, Urine Moderate mg/dL (Negative); Glucose,Urine (UA) Negative (Negative); Ketones,Urine Negative (Negative); Nitrite,Urine Negative (Negative); Protein,Urine 30 MG/DL; RBC,Urine 9 /HPF (0-4); Squamous Epithelial Cell,Urine Occasional /HPF (0-10); Urine Color Yellow (Yellow); WBC,Urine 3 /HPF (0-6)
[2017-07-19] MEDS ORDERED: PIPERACILLIN/TAZOBACTAM 3,375 MG VIAL IV ONE (16:08)
[2017-07-19] MEDS ORDERED: cefTRIAXone 1,000 MG VIAL ONE (16:08)
[2017-07-19] MEDS ORDERED: POTASSIUM CHLORIDE 20 MEQ TABLET PO ONE (16:08)
[2017-07-19 16:23] LABS: Sedimentation Rate-Westergren 95 MM/HR (0-20)
[2017-07-19] MEDS ORDERED: ONDANSETRON 4 MG/2 ML VIAL IV PRN (17:47)
[2017-07-19] MEDS ORDERED: BISACODYL 10 MG SUPP RECTAL PRN (17:47)
[2017-07-19] MEDS ORDERED: MAGNESIUM HYDROXIDE SUSP 30 ML UDCUP PO PRN (17:47)
[2017-07-19] MEDS ORDERED: ACETAMINOPHEN 325 MG TABLET PO PRN (17:47)
[2017-07-19] MEDS: SODIUM CHLORIDE 0.9% 1,000 ML IV SCH (18:22)
--- NOTE | 2017-07-19 19:18 | OB/GYN History & Physical ---
History of Present Illness History of present illness: Ms. Delatorre is a 31 year old female Pt. is a 31y/o s/p RPT delivery x 3 on 07/01/17 who presents to the er with complaints of lower pelvic pain and fever which started today. Pt. states that she has been ok until today and states at her 2 wk post op visit she was without complaints. CT scan performed in ER revealed a 9cm collection along with a 4cm collection. Home Medications Medication Instructions Recorded Confirmed Type No Known Home Medications [No 07/19/17 07/19/17 History Known Home Medications] Allergies Allergy/AdvReac Type Severity Reaction Status Date / Time No Known Allergies Allergy Verified 07/01/17 12:32 12 point system: reviewed and no additional remarkable complaints except as stated - Constitutional Constitutional: Present: chills, fever(s) - Gastrointestinal Gastrointestinal: Present: abdominal pain Medical,Surgical,& Family Hx - Medical History Cardio: History of: Hypertension Reproductive: No history of: Ectopic , Complication Other: History of: Miscellaneous Medical Problems (obesity) - Surgical History HEENT Surgeries: Surgical HX of: Tonsilectomy & Adenoidectomy (1999) Reproductive Surgeries: Surgical HX of;: Section (2008, 2014, 2016), Tubal Ligation Patient denies;: Hysterectomy - Family History Family History: Reports;: Family Diabetes (Maternal grandmother), Family Hypertension (Mother and Father, MGM) - Social History Smoking Status: Never smoker Frequency of Alcohol Use: None Type of Drug Use: None Exam [employer] - Constitutional Vitals: Vital Signs Temp Pulse Pulse Resp BP BP Pulse Ox 07/19/17 18:04 99.4 F 128 H 20 153/94 07/19/17 17:30 54 L 162/71 07/19/17 16:45 108 H 19 153/92 100 07/19/17 15:45 116 H 152/107 07/19/17 14:30 116 H 135/80 07/19/17 14:04 101.1 F H 120 H 20 133/84 97 Pulse Ox 07/19/17 18:04 99 07/19/17 17:30 07/19/17 16:45 07/19/17 15:45 07/19/17 14:30 07/19/17 14:04 General appearance: mild distress - Respiratory Respiratory exam: Present: clear to auscultation bilaterally - Cardiovascular Cardiovascular exam: Present: regular rate and rhythm - GI/Abdominal GI/Abdominal exam: Present: normal bowel sounds, tenderness (abdomen soft, tenderness near incision. no rebound or guarding) - Extremities Exam Extremities exam: Present: normal inspection Assessment and Plan (1) Intra-abdominal collection Status: Acute Assessment and plan: 1. labs/cultures 2. start zosyn 3. ivf 4. pelvic ultrasound 5. IR consult for possible drainage Current Visit: Yes (2) Obesity Status: Chronic Current Visit: No (3) H/O section Status: Acute Current Visit: Yes Results - Labs CBC & BMP: 07/19/17 14:55 07/19/17 14:55
[2017-07-19] MEDS: DOCUSATE SODIUM 100 MG CAPSULE PO SCH (20:36)
--- NOTE | 2017-07-19 21:28 | Ultrasound Report ---
US pelvic complete Indication: Status post . Pelvic abscesses on CT. Pelvic ultrasound: Transabdominal grayscale and color Doppler images the pelvis were obtained. Uterus is anteverted measuring 70 x 40 x 32 mm, with a 6 mm endometrial stripe. Study somewhat limited by inability to compress forcibly on the patient due to pain. There is a 57 x 48 x 94 mm thick-walled adnexal collection that is internally hypoechoic, likely an abscess. Another abscess which appears to be superior of the bladder measures approximately 59 x 49 mm in size. The other abscesses, which are much more clearly seen on CT, were not clearly identified on ultrasound. One of these is posterior the rectum, not visible transabdominal. Neither ovary identified. Impression: Identification of 2 of multiple abscesses in the pelvis as described. CT much better defines the anatomic position and severity of these multiple abscesses. PROCEDURE INTERPRETED AT [facility] DEPARTMENT OF RADIOLOGY Final Report Signed by: Jey Johnson M.D.
[2017-07-19] MEDS: PIPERACILLIN/TAZOBACTAM 3,375 MG in SODIUM CHLORIDE 0.9% 100 ML IV SCH (21:33)
[2017-07-20] MEDS: PIPERACILLIN/TAZOBACTAM 3,375 MG in SODIUM CHLORIDE 0.9% 100 ML IV SCH ×3 (04:13→22:01)
[2017-07-20 07:24] LABS: Basophils % 0.2 % (0.0-0.8); Eosinophils % 0.1 % (0.00-10.9); Hematocrit 31.7 VOL% (35.7-47.0); Hemoglobin 10.5 GM/DL (12.0-16.0); Immature Granulocytes % 0.6 %; Immature Granulocytes Absolute 0.08 #; Lymphocytes % 15.3 % (21.3-54.2); Mean Corpuscular HGB Conc 33.1 GM/DL (32-36); Mean Corpuscular Hemoglobin 28 PG (27-34); Mean Corpuscular Volume 85.2 FL (87-102); Mean Platelet Volume 9.4 FL (9.6-12.0); Monocytes # 1.4 10*3/uL (0.11-0.8); Monocytes % 10.7 % (1.7-12.7); Neutrophils # 9.4 10*3/uL (1.4-7.4); Neutrophils % 73.1 % (38.7-73.9); Platelet Count 373 T/CUMM (130-400); Red Blood Count 3.72 MC/CUMM (3.8-5.5); Red Cell Distribution Width 14.3 % (9.3-17.3); White Blood Count 12.9 T/CUMM (4-12)
[2017-07-20 07:59] LABS: Band Neutrophils 3 % (0-10); Lymphocytes 11 % (20-55); Segmented Neutrophils 79 % (50-85); Total Cells Counted 100
[2017-07-20 08:03] LABS: Albumin 2.2 G/DL (3.4-5.0); Bilirubin,Total 1.6 MG/DL (0.2-1.0); Osmolality,Calculated 273.5 MOS/KG (273-304); Total Protein 6.6 G/DL (6.4-8.3)
[2017-07-20 08:08] LABS: Hypochromasia 1+; Platelet Estimate Increased
[2017-07-20 08:09] LABS: Giant Platelets Few
[2017-07-20] MEDS: DOCUSATE SODIUM 100 MG CAPSULE PO SCH ×2 (08:49→20:44)
[2017-07-20] MEDS: PANTOPRAZOLE 40 MG VIAL IV SCH (08:50)
[2017-07-20] MEDS: HYDROmorphone 2 MG/1 ML VIAL IV PRN ×2 (08:50→15:20)
[2017-07-20] MEDS ORDERED: fentaNYL 100 MCG/2 ML VIAL IV ONE (12:06)
[2017-07-20] MEDS ORDERED: MIDAZOLAM 2 MG/2 ML VIAL IV ONE (12:06)
--- NOTE | 2017-07-20 12:06 | IR History and Physical Update ---
IR Pre-Procedure - History and Physical H&P was reviewed, the patient examined and there: are no changes in the patients condition since last H&P was completed. Reason for procedure:: palvic abscess - Dictation Physical: refer to H&P completed by admitting physician - Physical Exam Vital Signs: Last Vital Signs Temp 98.5 F 07/20/17 08:05 Pulse 88 07/20/17 08:05 Resp 20 07/20/17 08:05 BP 158/74 07/20/17 08:05 Pulse Ox 98 07/20/17 08:00 Mental Status: alert and oriented Heart: regular rate and rhythm Lung: clear to auscultation Abdomen: within normal limits - Sedation IR anesthesia plan for sedation: moderate ASA Class: II Airway Assessment: Class III: Soft palate, base of uvula visible - Risks Risks: Procedures explained. Risks discussed include, but not limited to, the following:[ bleeding, infection, injury to nearby structures] All questions answered. The following alternatives were discussed:[surgery ] Risks and benefits discussed with: patient Consent obtained from: patient Assessment and Plan - Time spent with patient Time spent with patient: Less than 30 minutes (1) Intra-abdominal collection Problem details: probable post abscess Status: Acute Assessment and plan: plan for CT guided drainage today Current Visit: Yes
[2017-07-20] MEDS ORDERED: DIAZEPAM 5 MG TABLET PO ONE (14:12)
[2017-07-20] MEDS ORDERED: HYDROmorphone 2 MG/1 ML VIAL ONE (14:49)
--- NOTE | 2017-07-20 16:28 | Post Interventional Procedure ---
Pre-op diagnosis: pelvic abscess Post-op diagnosis: same Procedure: CT guided abscess drain placement Contrast: none Flouroscopy: none Radiologist: Jonatahn Hewitt Anesthesia: conscious sedation Medications: 1 mg IV dialudid Total Sedation Time: 60 mins Specimens: other (abscess aspirate sent for micro analysis) Estimated blood loss: none Complications: none Condition: stable Description/Findings: 10 Fr drain placed into the lower midline abdomen/pelvic abscess with CT guidance Patient tolerated well Assessment and Plan - Time spent with patient Time spent with patient: Less than 30 minutes (1) Intra-abdominal collection Problem details: probable post abscess Status: Acute Assessment and plan: plan for CT guided drainage today Current Visit: Yes
--- NOTE | 2017-07-20 17:02 | CT Report ---
CT abscess drainage Abscess drainage using CT guidance Clinical Information: 31 year old female status post approximately 3 weeks ago with lower abdominal pain/fever and imaging demonstrating a pelvic fluid collection most compatible with abscess. Percutaneous drainage is requested. Physician[s]: Dr. Hewitt Total number of images for the procedure: 148 Procedure: The patient was advised of the benefits, risks, and alternatives of the procedure and informed consent was obtained. A time out was performed with verification of the patient's name, MRN, site of procedure, and type of procedure to be performed. Moderate sedation was performed by the physician including the presence of an independent trained observer that assisted in monitoring the patient's level of consciousness and physiological status. Following the administration of 1 mg intravenous Dilaudid, the physician spent 60 minutes of continuous [id number] time with the patient. The patient was placed in the supine on the CT gantry and a scan was performed through the region of interest. This demonstrates lower midline abdomen/pelvis fluid collection with contained air, most compatible with abscess. After marking the overlying skin, the patient was prepped and draped in the usual sterile fashion. The soft tissues overlying the anticipated puncture site were anesthetized with lidocaine. Through this anesthetized region, a 20 G Chiba needle was passed into the fluid collection with intermittent CT fluoroscopic guidance. Purulent, malodorous material was aspirated. An Amplatz wire was advanced into the fluid collection, over which sequential 9 and 10 Canadian dilators were advanced. Subsequently, a 10 Canadian Cook all-purpose drain was passed. A fluid specimen was aspirated to presented to the lab for microbiological analysis. Subsequent localized CT-scanning was performed to confirm the catheter location. The catheter was then locked, sutured in position with Percu-Stay device and placed to gravity drainage. The fluid specimen was labeled with the patient's name and medical record number and sent to the laboratory for further analysis. The patient tolerated the procedure well and was returned to the PRU in stable condition. EBL: < 5 mL. Complications: None. Conclusion: 1. Successful placement of a10 Canadian pigtail drain in a lower midline abdomen/pelvis fluid collection. 2. The catheter should be flushed with 10 ml of normal saline every 24 hours. 3. The primary team should contact Interventional Radiology when output is less than 15 ml per day for two consecutive days. PROCEDURE INTERPRETED AT [facility] DEPARTMENT OF RADIOLOGY Final Report Signed by: Jonathan Hewitt
[2017-07-21] MEDS: PIPERACILLIN/TAZOBACTAM 3,375 MG in SODIUM CHLORIDE 0.9% 100 ML IV SCH ×3 (05:04→20:23)
[2017-07-21 05:55] LABS: Basophils % 0.3 % (0.0-0.8); Eosinophils % 0.4 % (0.00-10.9); Hematocrit 28.9 VOL% (35.7-47.0); Hemoglobin 9.6 GM/DL (12.0-16.0); Immature Granulocytes % 0.5 %; Immature Granulocytes Absolute 0.05 #; Lymphocytes # 1.6 10*3/uL (1.4-4.0); Lymphocytes % 16.6 % (21.3-54.2); Mean Corpuscular HGB Conc 33.2 GM/DL (32-36); Mean Corpuscular Hemoglobin 28 PG (27-34); Mean Corpuscular Volume 84.8 FL (87-102); Mean Platelet Volume 9.5 FL (9.6-12.0); Monocytes # 0.9 10*3/uL (0.11-0.8); Monocytes % 9.3 % (1.7-12.7); Neutrophils # 6.9 10*3/uL (1.4-7.4); Neutrophils % 72.9 % (38.7-73.9); Platelet Count 370 T/CUMM (130-400); Red Blood Count 3.41 MC/CUMM (3.8-5.5); Red Cell Distribution Width 14.7 % (9.3-17.3); White Blood Count 9.5 T/CUMM (4-12)
[2017-07-21 06:24] LABS: Band Neutrophils 1 % (0-10); Eosinophils 2 % (0-10); Hypochromasia 1+; Lymphocytes 15 % (20-55); Segmented Neutrophils 75 % (50-85); Total Cells Counted 100
[2017-07-21 06:25] LABS: Microcytosis Slight; Platelet Estimate Normal
[2017-07-21] MEDS: DOCUSATE SODIUM 100 MG CAPSULE PO SCH ×2 (09:05→20:22)
[2017-07-21] MEDS: PANTOPRAZOLE 40 MG VIAL IV SCH (09:06)
[2017-07-21] MEDS: SODIUM CHLORIDE 0.9% 1,000 ML IV SCH (09:10)
--- NOTE | 2017-07-21 15:02 | Progress Note ---
Assessment and Plan (1) Postoperative intra-abdominal abscess Status: Acute Assessment and plan: contnue current treatment Current Visit: Yes Family Medicine PN Sub Interval history: Much improvement today. Tolerating diet well not requiring analgesia and getting out of bed and ambulating well. White blood cell count continues to drop and the patient remains afebrile. Exam (Progress Note) - Constitutional Vitals: Period Temp Pulse Resp BP Sys/Vu Pulse Ox Last 24 Hr 97.3 F-100.9 F 97-118 16-21 134-165/80-100 93-98 General appearance: no acute distress - Head Head exam: Present: normal inspection - Respiratory Respiratory exam: Absent: accessory muscle use - Cardiovascular Cardiovascular exam: Present: regular rate and rhythm - GI/Abdominal GI/Abdominal exam: Present: distended, hypoactive bowel sounds, soft. Absent: tenderness, rebound - Neurological Exam Neurological exam: Present: alert, oriented X3 - Psychiatric Psychiatric exam: Present: normal affect, normal mood Results - Labs CBC & BMP: 07/21/17 05:30 07/20/17 06:39
[2017-07-21] MEDS: IBUPROFEN 800 MG TABLET PO PRN (23:19)
[2017-07-22] MEDS: SODIUM CHLORIDE 0.9% 1,000 ML IV SCH ×2 (04:23→04:25)
[2017-07-22] MEDS: PIPERACILLIN/TAZOBACTAM 3,375 MG in SODIUM CHLORIDE 0.9% 100 ML IV SCH ×2 (04:31→12:54)
[2017-07-22] MEDS: HYDROmorphone 2 MG/1 ML VIAL IV PRN (05:09)
[2017-07-22] MEDS: DOCUSATE SODIUM 100 MG CAPSULE PO SCH (08:45)
[2017-07-22] MEDS: IBUPROFEN 800 MG TABLET PO PRN (10:31)
[2017-07-22] MEDS: PANTOPRAZOLE 40 MG VIAL IV SCH (10:32)
[2017-07-22 12:04] VITALS: BP 144/84
--- NOTE | 2017-07-22 14:19 | Discharge Summary ---
Hospital Course - Hospital Course Hospital Course: The patient was admitted to the emergency room approximately 1 week after emergency delivery with fever and abdominal pain and elevated white count. CT and ultrasound confirmed a fluid pocket which was drained by interventional radiology. Culture of the fluid was unremarkable although Gram stain revealed milligrams positive cocci. Her white blood cell count has continued to decline as her sense of well-being is increased. She feels ready to go home today. Diagnosis - Discharge Diagnosis (1) Postoperative intra-abdominal abscess Status: Acute Discharge Plan - Discharge Data Disposition: Disch To Home/Self Care Condition at Discharge: Stable Discharge Diet: advance to your usual diet Activity: resume usual activities as tolerated Hygiene: may shower Weight Bearing at Discharge: weight bear as tolerated Driving: not until seen by doctor Contact your physician if you experience:: fever over 101, Difficulty voiding, Redness or swelling, Nausea/Vomiting, Shortness of breath, Bleeding, pain uncontrolled by pain medications - Discharge Medications No Action No Known Home Medications [No Known Home Medications] - Follow Up or Referral Follow Up: Meng Wolfe DO [Primary Care Provider] - - Forms/Instructions Exam - Constitutional Vitals: Period Temp Pulse Resp BP Sys/Vu Pulse Ox Last 24 Hr 96.4 F-98.7 F 68-95 16-22 115-152/71-92 96-99 General appearance: no acute distress - Head Head exam: Present: normal inspection - Cardiovascular Cardiovascular exam: Present: regular rate and rhythm - GI/Abdominal GI/Abdominal exam: Present: normal bowel sounds, soft, other (Abdominal drain placed by interventional radiologist removed without problems). Absent: tenderness - Extremities Exam Extremities exam: Present: normal inspection - Back Exam Back exam: Present: normal inspection. Absent: CVA tenderness (L), CVA tenderness (R) - Neurological Exam Neurological exam: Present: alert, oriented X3 - Psychiatric Psychiatric exam: Present: normal affect, normal mood - Skin Skin exam: Present: normal color, warm Discharge Results Procedures and tests throughout hospitalization: Pending Orders 07/19/17 15:49 Blood Culture Stat 07/20/17 15:40 Body Fluid Cult and Gram Stain Stat Labs on day of discharge: Preliminary micro results at discharge 07/20/17 15:40 Body Fluid Culture - Preliminary Abscess - Abdominal Gram Positive Cocci 07/19/17 15:49 Blood Culture - Preliminary Blood No growth at 1 day 07/19/17 15:49 Blood Culture - Preliminary Blood No growth at 1 day DS: Provider Date of admission: 07/19/17 16:09 Primary care physician: Meng Wolfe DO Attending physician on admission: Odilia Davis, Consults: 07/19/17 17:47 Consult to Physician [CONS] Routine Comment: Postop abdominal abscess for IR Consulting Provider: Jey Johnson When should Consulting Provider be notified: In am Discharging clinician: Meng Wolfe DO Expected date of discharge: 07/22/17
== END 2017-07-22 15:39 | disposition home or self-care (01) | DRG 776 ==
LOC: EDUNIT# → EDBD → N.ED 13:57 → N.EDINP 16:09 → N.2E 17:46
PROVIDERS: ADMIT Obstetrics & Gynecology; ATTEND Obstetrics & Gynecology